=== PATIENT | male | born 1960 | race Caucasian/White ===

== ENCOUNTER → 2016-07-10 | Outpatient (CLI) | payer OTHER | LOC: MW.CHIM 08:51 | PROVIDERS: ATTEND Internal Medicine | DX: E11.65 Type 2 diabetes mellitus with hyperglycemia (principal) | CPT/HCPCS: 36415; 83036 ==

== ENCOUNTER 2018-05-03 08:27 | Emergency (ER) | payer BC ==
--- NOTE | 2018-05-03 08:56 | EDM.PDOC ---
ED HPI GENERAL MEDICAL PROBLEM - General Chief Complaint: Upper Extremity Injury/Pain Stated Complaint: INJURED RT ARM Time Seen by Provider: 05/03/18 08:52 - History of Present Illness INITIAL COMMENTS - FREE TEXT/NARRATIVE: HISTORY AND PHYSICAL: History of present illness: Patient a 57-year-old white male presents with a concern of acute right biceps injury that occurred last Thursday he's had pain swelling and limited range of motion with ecchymosis noted distal to his biceps. This was done when he was pulling on a wrench. Review of systems: As per history of present illness and below otherwise all systems reviewed and negative. Past medical history: As per history of present illness and as reviewed below otherwise noncontributory. Surgical history: As per history of present illness and as reviewed below otherwise noncontributory. Social history: No reported history of drug or alcohol abuse. Family history: As per history of present illness and as reviewed below otherwise noncontributory. Physical exam: HEENT: Atraumatic, normocephalic, pupils reactive, negative for conjunctival pallor or scleral icterus, mucous membranes moist, throat clear, neck supple, nontender, trachea midline. Lungs: Clear to auscultation, breath sounds equal bilaterally, chest nontender. Heart: S1S2, regular, negative for clicks, rubs, or JVD. Abdomen: Soft, nondistended, nontender. Negative for masses or hepatosplenomegaly. Negative for costovertebral tenderness. Pelvis: Stable nontender. Genitourinary: Deferred. Rectal: Deferred. Extremities: Patient has tenderness and what appears to be possible rupture his biceps with ecchymosis noted on the medial aspect of the proximal forearm. CMS neurovascular exam is unremarkable Neuro: Awake, alert, oriented. Cranial nerves II through XII unremarkable. Cerebellum unremarkable. Motor and sensory unremarkable throughout. Exam nonfocal. Diagnostics: None Therapeutics: Sling Impression: #1 biceps injury Definitive disposition and diagnosis as appropriate pending reevaluation and review of above. right arm Pain Score (Numeric/FACES): 7 - Related Data Allergies Allergy/AdvReac Type Severity Reaction Status Date / Time No Known Allergies Allergy Verified 05/03/18 08:34 Home Meds: Home Meds metFORMIN HCl [Metformin HCl] 1 tab PO DAILY 05/03/18 [History] Past Medical History - Past Health History Medical/Surgical History: Denies Medical/Surgical History Endocrine/Metabolic History: Reports: Diabetes, Type II - Infectious Disease History Infectious Disease History: Reports: Chicken Pox, Measles Social & Family History - Family History Family Medical History: Noncontributory - Tobacco Use Smoking Status *Q: Never Smoker - Recreational Drug Use Recreational Drug Use: No Review of Systems - Review of Systems Review Of Systems: ROS reveals no pertinent complaints other than HPI. ED EXAM, GENERAL - Physical Exam Exam: See Below (See dictation) Course - Vital Signs Last Recorded V/S: Last Vital Signs Temp 35.3 C 05/03/18 08:35 Pulse 75 05/03/18 08:35 Resp 18 05/03/18 08:35 BP 180/100 H 05/03/18 08:35 Pulse Ox 95 05/03/18 08:35 Departure - Departure Time of Disposition: 08:54 Disposition: Home, Self-Care 01 Condition: Good Clinical Impression: Upper extremity injury - Discharge Information Referrals: Ramos Beckford MD [Primary Care Provider] - Forms: ED Department Discharge Additional Instructions: The following information is given to patients seen in the emergency department who are being discharged to home. This information is to outline your options for follow-up care. We provide all patients seen in our emergency department with a follow-up referral. The need for follow-up, as well as the timing and circumstances, are variable depending upon the specifics of your emergency department visit. If you don't have a primary care physician on staff, we will provide you with a referral. We always advise you to contact your personal physician following an emergency department visit to inform them of the circumstance of the visit and for follow-up with them and/or the need for any referrals to a consulting specialist. The emergency department will also refer you to a specialist when appropriate. This referral assures that you have the opportunity for followup care with a specialist. All of these measure are taken in an effort to provide you with optimal care, which includes your followup. Under all circumstances we always encourage you to contact your private physician who remains a resource for coordinating your care. When calling for followup care, please make the office aware that this follow-up is from your recent emergency room visit. If for any reason you are refused follow-up, please contact the [facility] emergency department at and asked to speak to the emergency department charge nurse. [facility] Professional Building [address] [place] [address], [address] [place] [address] Sling as directed follow-up orthopedic surgery above Tylenol as directed return as needed as discussed off work until released by orthopedic surgery
== END 2018-05-03 09:50 | disposition home or self-care (01) ==
LOC: MW.ED 08:27
DX: S49.91XA Unspecified injury of right shoulder and upper arm, initial encounter (principal); X50.9XXA Other and unspecified overexertion or strenuous movements or postures, initial encounter
CPT/HCPCS: 99283

== ENCOUNTER 2018-05-05 06:22 | Day surgery (SDC) | payer BC ==
[2018-05-05] MEDS ORDERED: fentaNYL 250 MCG/5 ML SDV ONE (07:04)
[2018-05-05] MEDS ORDERED: Midazolam 1 MG/ML 2 ML SDV ONE (07:04)
[2018-05-05] MEDS ORDERED: Ondansetron 4 MG/2 ML SDV ONE (07:05)
[2018-05-05] MEDS ORDERED: Propofol 200 MG/20 ML SDV ONE ×2 (07:05→07:07)
--- NOTE | 2018-05-05 07:12 | PCM.PREANE ---
Preanesthetic Assessment - Anesthesia/Transfusion/Family Hx Anesthesia History: Prior Anesthesia Without Reaction Family History of Anesthesia Reaction: No Transfusion History: No Prior Transfusion(s) Intubation History: Unknown - Review of Systems General: No Symptoms Pulmonary: No Symptoms Cardiovascular: No Symptoms Gastrointestinal: No Symptoms Neurological: No Symptoms Other: Reports: None - Physical Assessment O2 Sat by Pulse Oximetry: 92 Respiratory Rate: 16 Vital Signs: Last Vital Signs Temp 36.4 C 05/05/18 07:02 Pulse 73 05/05/18 07:02 Resp 16 05/05/18 07:02 BP 175/95 H 05/05/18 07:02 Pulse Ox 92 L 05/05/18 07:02 Height: 1.83 m Weight: 136.078 kg ASA Class: 3 Mental Status: Alert & Oriented x3 Airway Class: Mallampati = 3 Dentition: Reports: Dentures (upper), Missing Tooth/Teeth (few at the bottom) Thyro-Mental Finger Breadths: 3 Mouth Opening Finger Breadths: 2 (very small mouth) ROM/Head Extension: Full Lungs: Clear to Auscultation, Normal Respiratory Effort Cardiovascular: Regular Rate, Regular Rhythm - Allergies Allergies/Adverse Reactions: Allergies Allergy/AdvReac Type Severity Reaction Status Date / Time No Known Allergies Allergy Verified 05/04/18 12:13 - Blood Blood Available: No - Anesthesia Plan Pre-Op Medication Ordered: None - Acknowledgements Anesthesia Type Planned: General Anesthesia Pt an Appropriate Candidate for the Planned Anesthesia: Yes Alternatives and Risks of Anesthesia Discussed w Pt/Guardian: Yes Pt/Guardian Understands and Agrees with Anesthesia Plan: Yes PreAnesthesia Questionnaire - Past Health History Medical/Surgical History: Denies Medical/Surgical History HEENT History: Reports: Other (See Below) Other HEENT History: top denture Respiratory History: Reports: Other (See Below) (I suggested testing for sleep apnea) Gastrointestinal History: Reports: Hepatitis Other Gastrointestinal History: hepatitis C in the past, has been treated Endocrine/Metabolic History: Reports: Diabetes, Type II (diagnosed 4 years ago, A1C 6.1-7, average glucose level around 120 per patiant), Obesity/BMI 30+ - Infectious Disease History Infectious Disease History: Reports: Chicken Pox, Measles - Past Surgical History Head Surgeries/Procedures: Reports: None GI Surgical History: Reports: Appendectomy - SUBSTANCE USE Smoking Status *Q: Never Smoker Recreational Drug Use History: No - HOME MEDS Home Medications: Home Meds metFORMIN HCl [Metformin HCl] 1 tab PO DAILY 05/03/18 [History]
[2018-05-05] MEDS ORDERED: Succinylcholine 200 MG/10 ML MDV ONE (07:19)
[2018-05-05] MEDS ORDERED: Rocuronium 10 MG/ML 10 ML Syringe ONE (07:20)
[2018-05-05] MEDS ORDERED: ceFAZolin/Dextrose,Iso-Osmotic 2 GM/50 ML Duplex Bag IV ONE (07:27)
[2018-05-05] MEDS ORDERED: ceFAZolin 2 GM in Premix Bag 1 BAG IV SCH (07:30)
[2018-05-05] MEDS ORDERED: Lidocaine 1% 20 ML MDV ONE (07:35)
[2018-05-05] MEDS ORDERED: Dexamethasone 4 MG/ML 5 ML MDV ONE (08:17)
[2018-05-05] MEDS ORDERED: Neostigmine Methylsulfate 1 MG/ML 5 ML Syringe ONE (08:50)
[2018-05-05] MEDS ORDERED: Glycopyrrolate 0.2 MG/ML SDV ONE ×2 (08:50→08:51)
[2018-05-05] MEDS ORDERED: Meperidine PF 25 MG/ML Syringe IVPUSH PRN (08:55)
[2018-05-05] MEDS ORDERED: Ondansetron 4 MG/2 ML SDV IVPUSH PRN (08:57)
--- NOTE | 2018-05-05 09:01 | PCM.OPNOTE ---
- General Post-Op/Procedure Note Date of Surgery/Procedure: 05/05/18 Operative Procedure(s): right distal biceps repair Pre Op Diagnosis: right distal biceps rupture Post-Op Diagnosis: same Primary Surgeon: Murphy Max Mai Dermatology Nurse Practitioner: Holly Padron Pathology: none EBL in mLs: 1 Complications: none Condition: Good
[2018-05-05] MEDS: fentaNYL 100 MCG/2 ML SDV IVPUSH PRN ×2 (09:38→09:49)
[2018-05-05] MEDS ORDERED: Acetaminophen 1,000 MG in Premix Bag 1 BAG IV ONE (09:55)
[2018-05-05] MEDS ORDERED: Ketorolac 30 MG/ML SDV IVPUSH ONE (09:56)
[2018-05-05] MEDS ORDERED: Ketorolac 30 MG/ML SDV ONE (09:59)
--- NOTE | 2018-05-05 10:54 | PCM.POSTAN ---
POST ANESTHESIA ASSESSMENT - MENTAL STATUS Mental Status: Alert, Oriented - RESPIRATORY Respiratory Status: Respiratory Rate WNL, Airway Patent, O2 Saturation Stable - CARDIOVASCULAR CV Status: Pulse Rate WNL, Blood Pressure Stable - GASTROINTESTINAL GI Status: No Symptoms - POST OP HYDRATION Hydration Status: Adequate & Stable - OBSERVATIONS Free Text/Narrative:: still sore 08/18, will give iv acetamenophin and iv toradol
--- NOTE | 2018-05-05 10:54 | PCM48HPAN ---
Post Anesthesia Note - EVALUATION WITHIN 48HRS OF ANESTHETIC Vital Signs in Normal Range: Yes Patient Participated in Evaluation: Yes Respiratory Function Stable: Yes Airway Patent: Yes Cardiovascular Function Stable: Yes Hydration Status Stable: Yes Pain Control Satisfactory: Yes Nausea and Vomiting Control Satisfactory: Yes Mental Status Recovered: Yes Resp Rate: 16
--- NOTE | 2018-05-05 16:20 | OR ---
SURGEON: Murphy Booth MD DATE OF PROCEDURE: 05/05/2018 EMPLOYEE COUNSELOR: Holly Padron PA-C. PREOPERATIVE DIAGNOSIS: Right distal biceps rupture. POSTOPERATIVE DIAGNOSIS: Right distal biceps rupture. OPERATION PERFORMED: Right distal biceps repair. ANESTHESIA: General. COMPLICATIONS: None. ESTIMATED BLOOD LOSS: Minimal. SPECIMENS: None. IMPLANTS: [employer] 2.9 JuggerLoc distal biceps fixation device. INDICATIONS: The patient is a 57-year-old male who recently tore his biceps due to pain in the dominant arm and he wished to have repair. He understands risks, benefits, complications including but not limited to, infection, neurovascular injury, continued pain, re-rupture from lateral antebrachial cutaneous nerve dysesthesia, posterior interosseous nerve dysfunction, need for postoperative protocol and wished to proceed. DESCRIPTION OF PROCEDURE: The patient was seen in the preoperative area. Operative extremity was marked with the patient. He was transferred to the operating room, and placed supine on the operating room table. General anesthesia was induced. Endotracheal tube was placed. He received preop antibiotics with Ancef. The right arm was prepped and draped in usual sterile fashion using alcohol followed by ChloraPrep. It was placed in a well-padded upper arm tourniquet. Tourniquet time during the case was 34 minutes. A 3 to 4 cm longitudinal incision starting about 1 cm and elbow flexion crease was made. Dissection was carried out through the subcutaneous tissues. Hemostasis was obtained. Careful dissection was performed. Lateral and antebrachial cutaneous nerve were found and pulled radially. Blunt dissection down to the radial tuberosity was performed, and it was easily found. Then with blunt dissection, was able to find the biceps tendon and milking it down, was able bring the tendon into the wound. It was then pulled out and debulked. It had a tendinosis at the end and measured approximately 6 to 7 mm, and then this was held with an Allis clamp and then careful dissection down to the radial tuberosity was performed. The bare area was noted and a guide pin was placed in this, it was over-reamed. The reamer was left in and then the 2.9 JuggerLoc Endobutton was placed across the outer aspect of the radius. This was pulled on and noted to have excellent fixation near side of the bone, and then the Krackow sutures were placed distally, passed through the blue limb on the fixation device and then back up, and then the blue sutures were also krackowed up and tied at the top of the tendon about 3 cm proximally. While flexing the arm in full supination, the tendon was pulled down into the opening in the radial tuberosity. Of note, the arm was kept in full supination during the case. This showed excellent repair of the biceps and ranged well. Tourniquet was then released. Tourniquet time was 34 minutes. There was no bleeding deep. The wound was thoroughly irrigated throughout the case, particularly after reaming. The subcutaneous tissues were closed with 2-0 Vicryl and skin with running 4-0 Monocryl with Steri-Strips. Sterile dressing was placed. Patient was extubated in operative room and transferred to recovery room in stable condition. Sponge and needle counts were correct at the end of the case. There were no complications. He will be place into a brace in his arm and a sling. SHELLIE RENEE /[id number]
== END 2018-05-05 11:09 | disposition home or self-care (01) ==
LOC: MW.SDS 06:22
PROVIDERS: ATTEND Orthopaedic Surgery
DX: S46.211A Strain of muscle, fascia and tendon of other parts of biceps, right arm, initial encounter (principal); E11.9 Type 2 diabetes mellitus without complications; E66.9 Obesity, unspecified; Z68.41 Body mass index [BMI] 40.0-44.9, adult; M19.021 Primary osteoarthritis, right elbow; Z79.84 Long term (current) use of oral hypoglycemic drugs; X58.XXXA Exposure to other specified factors, initial encounter
CPT/HCPCS: 24341; C1776; J0131; J0330; J0690; J1100; J1885; J2250; J2405; J2704; J3010; J3490

== ENCOUNTER 2018-10-04 09:13 | Day surgery (SDC) | payer BC ==
[~2018-10-04 09:13] MED LIST: Lactated Ringers 1,000 ML IV SCH
--- NOTE | 2018-10-04 10:02 | PCM.PREANE ---
Preanesthetic Assessment - Anesthesia/Transfusion/Family Hx Anesthesia History: Prior Anesthesia Without Reaction Family History of Anesthesia Reaction: No Transfusion History: No Prior Transfusion(s) Intubation History: Unknown - Review of Systems General: No Symptoms Pulmonary: No Symptoms Cardiovascular: No Symptoms Neurological: No Symptoms Other: Reports: None - Physical Assessment NPO Status Date: 10/03/18 Height: 6 ft Weight: 149.232 kg ASA Class: 3 Mental Status: Alert & Oriented x3 Airway Class: Mallampati = 3 Dentition: Reports: Dentures (upper) ROM/Head Extension: Full Lungs: Clear to Auscultation, Normal Respiratory Effort Cardiovascular: Regular Rate, Regular Rhythm - Allergies Allergies/Adverse Reactions: Allergies Allergy/AdvReac Type Severity Reaction Status Date / Time No Known Allergies Allergy Verified 09/29/18 09:45 - Blood Blood Available: No - Anesthesia Plan Pre-Op Medication Ordered: Other (insulin 10 units) - Acknowledgements Anesthesia Type Planned: General Anesthesia Pt an Appropriate Candidate for the Planned Anesthesia: Yes Alternatives and Risks of Anesthesia Discussed w Pt/Guardian: Yes Pt/Guardian Understands and Agrees with Anesthesia Plan: Yes Additional Comments: anes prob list: DM2, (stopped metformin today and used prep with gatoraid-with sugar), s/p treatment for Hep C PLAN: SQ insulin for glucose of 340, then TIVA PreAnesthesia Questionnaire - Past Health History Medical/Surgical History: Denies Medical/Surgical History HEENT History: Reports: Hard of Hearing Other HEENT History: has bilateral hearing aides but doesn't wear them all the time, uses reading glasses Respiratory History: Reports: Other (See Below) (I suggested testing for sleep apnea) Gastrointestinal History: Reports: Chronic Diarrhea, GERD, Hepatitis Other Gastrointestinal History: hx of Hepatitis C- had taken medication and is cleared Musculoskeletal History: Reports: Fracture Other Musculoskeletal History: hx of fx wrist Endocrine/Metabolic History: Reports: Diabetes, Type II, Obesity/BMI 30+ - Infectious Disease History Infectious Disease History: Reports: Chicken Pox, Measles - Past Surgical History GI Surgical History: Reports: Appendectomy Musculoskeletal Surgical History: Reports: Other (See Below) Other Musculoskeletal Surgeries/Procedures:: Right Biceps Tendon Repair - SUBSTANCE USE Smoking Status *Q: Never Smoker Recreational Drug Use History: No - HOME MEDS Home Medications: Home Meds metFORMIN HCl [Metformin HCl] 1,000 mg PO BID 05/03/18 [History] - CURRENT (IN HOUSE) MEDS Current Meds: Current Medications Lactated Ringer's (Ringers, Lactated) 1,000 mls @ 125 mls/hr IV ASDIRECTED [facility] Insulin Aspart (Novolog) 10 unit SUBCUT ACBED [facility]
[2018-10-04] MEDS ORDERED: Lidocaine 2% 5 ML SDV ONE (11:27)
[2018-10-04] MEDS ORDERED: Propofol 200 MG/20 ML SDV ONE ×3 (11:28→12:00)
[2018-10-04] MEDS ORDERED: Insulin Aspart 100 Units/ML 3 ML Pen SUBCUT SCH (11:30)
[2018-10-04] MEDS ORDERED: Midazolam 1 MG/ML 2 ML SDV ONE (11:33)
[2018-10-04] MEDS ORDERED: fentaNYL 100 MCG/2 ML SDV ONE (11:33)
--- NOTE | 2018-10-04 12:22 | PCM.OPNOTE ---
- General Post-Op/Procedure Note Date of Surgery/Procedure: 10/04/18 Operative Procedure(s): Esophagogastroduodenoscopy with gastric and esophageal biopsies. Colonoscopy. Pre Op Diagnosis: Persistent and progressive heartburn. Change in bowel habits. Rectal bleeding. Post-Op Diagnosis: Chronic gastritis. Hiatal hernia with chronic esophagitis. No evidence of colonic neoplasia. Anesthesia Technique: MAC (ASA III) Primary Surgeon: Brenton Arreola Condition: Good Free Text/Narrative:: DICTATION [id number] CPT CODE [id number]
[2018-10-04] MEDS ORDERED: Lactated Ringers 1,000 ML IV SCH (12:30)
--- NOTE | 2018-10-04 12:55 | PCM.POSTAN ---
POST ANESTHESIA ASSESSMENT - MENTAL STATUS Mental Status: Alert, Oriented - RESPIRATORY Respiratory Status: Respiratory Rate WNL, Airway Patent, O2 Saturation Stable - CARDIOVASCULAR CV Status: Pulse Rate WNL, Blood Pressure Stable - GASTROINTESTINAL GI Status: No Symptoms - POST OP HYDRATION Hydration Status: Adequate & Stable
--- NOTE | 2018-10-04 13:08 | PCM48HPAN ---
Post Anesthesia Note - EVALUATION WITHIN 48HRS OF ANESTHETIC Vital Signs in Normal Range: Yes Patient Participated in Evaluation: Yes Respiratory Function Stable: Yes Airway Patent: Yes Cardiovascular Function Stable: Yes Hydration Status Stable: Yes Pain Control Satisfactory: Yes Nausea and Vomiting Control Satisfactory: Yes Mental Status Recovered: Yes Resp Rate: 14
--- NOTE | 2018-10-04 13:49 | OR ---
SURGEON: Brenton Arreola M.D. DATE OF PROCEDURE: 10/04/2018 OPERATION PERFORMED: Colonoscopy. PRIMARY SURGEON: Brenton Arreola MD. ANESTHESIA: MAC. ASA CLASSIFICATION: III. PREOPERATIVE DIAGNOSES: 1. Change in bowel habits. 2. Rectal bleeding. POSTOPERATIVE DIAGNOSIS: No evidence of neoplasia. DESCRIPTION OF PROCEDURE: With the patient having completed esophagogastroduodenoscopy, he was maintained in the left lateral decubitus position. The colonoscope was inserted into the rectum and advanced without difficulty to the cecum. The cecum was identified by internal landmarks and external pressure. The ileocecal valve was visualized, but not cannulated. The scope was retroflexed to visualize the ascending colon from below, then straightened and slowly withdrawn. The prep was excellent. The cecum, ascending colon, hepatic flexure, transverse colon, splenic flexure, descending colon, sigmoid colon, and rectum were very well visualized. No tumors, polyps, diverticula, or angiodysplastic changes were noted anywhere in the lower gastrointestinal tract. Once the colonoscope was withdrawn to the rectum, it was retroflexed to visualize the anal orifice from above. Again, no tumors or polyps were seen and there were no acute hemorrhoidal changes. The colonoscope was then straightened, the rectum aspirated, and the colonoscope removed. The patient tolerated the procedure well and was taken to recovery room in stable condition. JOSÉ RENEE /[id number]
--- NOTE | 2018-10-04 16:40 | OR ---
SURGEON: Brenton Arreola M.D. DATE OF PROCEDURE: 10/04/2018 OPERATION PERFORMED: Esophagogastroduodenoscopy with biopsy. PRIMARY SURGEON: Brenton Arreola MD. ANESTHESIA: MAC. ASA CLASSIFICATION: III. PREOPERATIVE DIAGNOSIS: Persistent and progressive heartburn. POSTOPERATIVE DIAGNOSES: 1. Mild to moderate chronic gastritis. 2. Hiatal hernia with esophagitis. DESCRIPTION OF PROCEDURE: The patient was taken to the endoscopy room, positioned on the endoscopy table in the left lateral decubitus position. Time-out was called for appropriate identification of the patient and procedure. Monitored anesthesia care was provided. The bite block was placed between the patient's teeth. The gastroscope was inserted through the bite block into the oropharynx and advanced without difficulty through the esophagus and stomach into the duodenum where examination was now carried out in a retrograde fashion. The duodenum shows no acute inflammatory changes or ulcerations. The scope was withdrawn into the stomach that does show mild to moderate gastritis. Antral biopsies were obtained to look for the presence of Helicobacter pylori. The gastroscope was retroflexed to visualize the proximal stomach. The patient does have a hiatal hernia. The scope was then straightened and slowly withdrawn, carefully visualizing both the greater and lesser curvatures. No acute lesions are noted. The patient does have a hiatal hernia that was best viewed in a forward fashion. Biopsies of the distal esophagus were obtained as there does appear to be some inflammatory changes. The esophagus itself demonstrates good contractility. No mid or proximal lesions were identified. The vocal cords were briefly visualized as the scope was withdrawn and noted to move symmetrically. The gastroscope was then removed with the patient having tolerated the procedure well. Following colonoscopy, he was taken to recovery room in stable condition. JOSÉ / VÍCTOR /[id number]
== END 2018-10-04 13:17 | disposition home or self-care (01) ==
LOC: MW.SDS 09:13
PROVIDERS: ATTEND Surgery
DX: K21.0 Gastro-esophageal reflux disease with esophagitis (principal); K29.50 Unspecified chronic gastritis without bleeding; K44.9 Diaphragmatic hernia without obstruction or gangrene; R19.4 Change in bowel habit; K62.5 Hemorrhage of anus and rectum; E11.9 Type 2 diabetes mellitus without complications; B19.20 Unspecified viral hepatitis C without hepatic coma; E66.01 Morbid (severe) obesity due to excess calories; Z68.44 Body mass index [BMI] 60.0-69.9, adult; Z82.49 Family history of ischemic heart disease and other diseases of the circulatory system; Z79.84 Long term (current) use of oral hypoglycemic drugs; Z98.890 Other specified postprocedural states
CPT/HCPCS: 43239; 45378; 82962; 88305; 88312; J1815; J2001; J2250; J2704; J3010; J7120; 00813

== ENCOUNTER 2020-04-13 08:08 | Emergency (ER) | payer BC ==
[2020-04-13] MEDS ORDERED: Diazepam 2 MG Tab PO ONE (08:29)
[2020-04-13] MEDS ORDERED: Ketorolac 30 MG/ML SDV IM ONE (08:30)
--- NOTE | 2020-04-13 08:35 | EDM.PDOC ---
ED HPI GENERAL MEDICAL PROBLEM - General Chief Complaint: Back Pain or Injury Stated Complaint: lower back pain Time Seen by Provider: 04/13/20 08:11 - History of Present Illness INITIAL COMMENTS - FREE TEXT/NARRATIVE: Patient is a 59-year-old male with history of diabetes and hyperlipidemia who is presenting with right lower back pain with some radiation to the right anterior thigh. 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 He does use his back quite heavily at work he has had some intermittent aches and pains but has no serious back history that he reports. He reports that the last 2 or 3 days he has had an ache in the right lower back with some radiation into the right thigh that worsens with bending and worsens with sitting. He woke up this morning in severe pain was unable to ambulate due to the pain. However he was able to ambulate to his car seat in his car his drove him here and was able to walk into the exam room but he reports severe pain now with walking. He denies lower extremity weakness he denies numbness beyond the right anterior thigh he denies any urinary or bowel incontinence he denies any direct trauma to the back of the hip or leg. Back/Right Hip Pain Score (Numeric/FACES): 8 - Related Data Allergies Allergy/AdvReac Type Severity Reaction Status Date / Time No Known Allergies Allergy Verified 04/13/20 08:18 Home Meds: Home Meds metFORMIN HCl [Metformin HCl] 1,000 mg PO BID 05/03/18 [History] Dulaglutide [Trulicity] 1 injection SQ WEEKLY 04/13/20 [History] Empagliflozin [Jardiance] 1 tab PO DAILY 04/13/20 [History] diazePAM [Valium] 4 mg PO TID PRN 3 Days #12 tab 04/13/20 [Rx] Past Medical History - Past Health History Medical/Surgical History: Denies Medical/Surgical History HEENT History: Reports: Hard of Hearing Other HEENT History: has bilateral hearing aides but doesn't wear them all the time, uses reading glasses Respiratory History: Reports: Other (See Below) Gastrointestinal History: Reports: Chronic Diarrhea, GERD, Hepatitis Other Gastrointestinal History: hx of Hepatitis C- had taken medication and is cleared Musculoskeletal History: Reports: Fracture Other Musculoskeletal History: hx of fx wrist Endocrine/Metabolic History: Reports: Diabetes, Type II, Obesity/BMI 30+ - Infectious Disease History Infectious Disease History: Reports: Chicken Pox, Hepatitis C, Measles - Past Surgical History Head Surgeries/Procedures: Reports: None GI Surgical History: Reports: Appendectomy Musculoskeletal Surgical History: Reports: Other (See Below) Other Musculoskeletal Surgeries/Procedures:: Right Biceps Tendon Repair Social & Family History - Family History Family Medical History: No Pertinent Family History - Tobacco Use Tobacco Use Status *Q: Never Tobacco User - Recreational Drug Use Recreational Drug Use: No ED ROS GENERAL - Review of Systems Review Of Systems: See Below Free Text/Narrative/Comment: General: No fever. Neck: No neck stiffness. Respiratory: No shortness of breath. Cardiac: No chest pain. Gastrointestinal: No nausea, vomiting or abdominal pain. Urinary: No dysuria. Musculoskeletal: Per HPI Neurologic: No headache. ED EXAM, GENERAL - Physical Exam Exam: See Below Free Text/Narrative:: General Appearance: No acute distress, appears comfortable Skin: No rash HEENT: Normocephalic/atraumatic, sclera anicteric, mucous membranes moist Neck: Normal range of motion Chest and Lungs: Bilateral breath sounds, clear to auscultation Cardiovascular: Regular rate and rhythm, no murmur Abdomen: Soft, non-tender Back: No midline tenderness there is some tenderness in the right paravertebral musculature L3-L4-L5, strength is intact in the bilateral hips in abduction abduction flexion and extension likewise strength intact in bilateral knees in flexion and extension as well as in bilateral ankles and plantar flexion and dorsiflexion. There is no midline tenderness or step-off in his back Musculoskeletal: No edema or tenderness Neurologic: Awake, alert, no obvious deficits, moving all extremities Psychiatric: Appropriate, cooperative Course - Vital Signs Last Recorded V/S: Last Vital Signs Temp 96.4 F L 04/13/20 08:50 Pulse 70 04/13/20 08:50 Resp 17 04/13/20 08:50 BP 150/99 H 04/13/20 08:50 Pulse Ox 95 04/13/20 08:50 - Orders/Labs/Meds Meds: Medications Discontinued Medications Generic Name Dose Route Start Last Admin Trade Name Freq PRN Reason Stop Dose Admin Diazepam 5 mg 04/13/20 08:29 04/13/20 08:39 Valium PO 04/13/20 08:30 5 mg ONETIME ONE Administration Ketorolac Tromethamine 30 mg 04/13/20 08:30 04/13/20 08:39 Toradol IM 04/13/20 08:31 30 mg ONETIME ONE Administration Departure - Departure Time of Disposition: 08:30 Disposition: Home, Self-Care 01 Condition: Good Clinical Impression: Lumbar strain - Discharge Information *PRESCRIPTION DRUG MONITORING PROGRAM REVIEWED*: Not Applicable *COPY OF PRESCRIPTION DRUG MONITORING REPORT IN PATIENT MITA: Not Applicable Prescriptions: diazePAM [Valium] 4 mg PO TID PRN 3 Days #12 tab PRN Reason: Muscle Spasm Instructions: Lumbar Sprain Referrals: Ramos Beckford MD [Primary Care Provider] - Forms: ED Department Discharge Additional Instructions: Today you had been given an injection of an anti-inflammatory called Toradol which is similar to ibuprofen as well as a dose of muscle relaxant called Valium. I encourage you to go home and take it easy for a few hours the Valium may make you little sleepy. However important that later on during the day today you get up and move around but do not overexert yourself. Starting this evening and around 5 PM I recommend that you take 3 [id number] Advil tablets which is 600 mg of ibuprofen with food. I recommend that you do this tomorrow morning with breakfast as well and continue this every 8 hours for the next 5 days being sure to always take the medication with food. I have sent a prescription for Valium to the pharmacy which you can citrus picker tomorrow. Important you do not drive operate machinery or drink any alcohol if you take t he Valium it is best taken at night when you go to bed to help with morning spasm. Your symptoms should calm down and improve over the next several days if you are not feeling her normal self by mid next week I encourage you to follow- up with your primary care doctor. If you worsen or have any other new symptoms that concern you I encourage you to call your doctor or return to the ER. The following information is given to patients seen in the emergency department who are being discharged to home. This information is to outline your options for follow-up care. We provide all patients seen in our emergency department with a follow-up referral. The need for follow-up, as well as the timing and circumstances, are variable depending upon the specifics of your emergency department visit. If you don't have a primary care physician on staff, we will provide you with a referral. We always advise you to contact your personal physician following an emergency department visit to inform them of the circumstance of the visit and for follow-up with them and/or the need for any referrals to a consulting specialist. The emergency department will also refer you to a specialist when appropriate. This referral assures that you have the opportunity for follow-up care with a specialist. All of these measure are taken in an effort to provide you with optimal care, which includes your follow-up. Under all circumstances we always encourage you to contact your private physician who remains a resource for coordinating your care. When calling for follow-up care, please make the office aware that this follow-up is from your recent emergency room visit. If for any reason you are refused follow-up, please contact the [facility] Emergency Department at and asked to speak to the emergency department charge nurse. Sepsis Event Note (ED) - Evaluation Sepsis Screening Result: No Definite Risk - Focused Exam Vital Signs: Vital Signs Temp Pulse Resp BP Pulse Ox 04/13/20 08:50 96.4 F L 70 17 150/99 H 95 04/13/20 08:19 98.3 F 75 16 148/95 H 98 - Assessment/Plan Assessment:: 59-year-old male presenting with signs symptoms most consistent with lumbar back strain with some mild radiculopathy there is no strength deficit there are no findings of cord compression or cauda equina there is no fever no findings that would suggest osteomyelitis risk factors for epidural abscess. Patient ambulates well at this time. Patient was provided with a dose of Toradol and Valium here he was instructed on [id number] ibuprofen use and a prescription for Valium was sent to the pharmacy which he can citrus picker tomorrow when they open. Strict return precautions and follow-up discussed and understood. Patient comfortable with discharge.
== END 2020-04-13 08:52 | disposition home or self-care (01) ==
LOC: MW.ED 08:08
DX: S39.012A Strain of muscle, fascia and tendon of lower back, initial encounter (principal); E11.9 Type 2 diabetes mellitus without complications; E66.9 Obesity, unspecified; Z68.39 Body mass index [BMI] 39.0-39.9, adult; Z79.84 Long term (current) use of oral hypoglycemic drugs; X50.9XXA Other and unspecified overexertion or strenuous movements or postures, initial encounter; Y99.0 Civilian activity done for income or pay
CPT/HCPCS: 96372; 99283; A9270; J1885

== ENCOUNTER 2020-04-17 11:00 | Emergency (ER) | payer BC ==
[2020-04-17] MEDS ORDERED: Acetaminophen/oxyCODONE 325-5 MG Tab PO ONE (11:53)
--- NOTE | 2020-04-17 11:59 | EDM.PDOC ---
ED HPI GENERAL MEDICAL PROBLEM - General Chief Complaint: Back Pain or Injury Stated Complaint: FROM CLINIC Time Seen by Provider: 04/17/20 11:06 Source of Information: Reports: Patient History Limitations: Reports: No Limitations - History of Present Illness INITIAL COMMENTS - FREE TEXT/NARRATIVE: Patient is a 59-year-old male who was sent over from clinic back pain. Patient was seen here in the ER few days ago for back pain was given muscle relaxers that did not resolve pain. Pain states the pain has been getting worse and now has numbness to the saddle area and also feels like she does not know when he is to urinate. Patient denies any direct injuries to the back. Patient also reports some leg weakness as well. Patient denies any nausea vomiting fever chills or other complaints. back Pain Score (Numeric/FACES): 11 - Related Data Allergies Allergy/AdvReac Type Severity Reaction Status Date / Time No Known Allergies Allergy Verified 04/17/20 11:28 Home Meds: Home Meds metFORMIN HCl [Metformin HCl] 1,000 mg PO BID 05/03/18 [History] Dulaglutide [Trulicity] 1 injection SQ WEEKLY 04/13/20 [History] Empagliflozin [Jardiance] 1 tab PO DAILY 04/13/20 [History] diazePAM [Valium] 4 mg PO TID PRN 3 Days #12 tab 04/13/20 [Rx] Acetaminophen/oxyCODONE [Percocet 325-5 MG] 1 each PO Q6HR PRN 5 Days #20 tab 04/17/20 [Rx] Metaxalone 800 mg PO TID 04/17/20 [History] predniSONE [Prednisone] 10 mg PO DAILY 04/17/20 [History] Past Medical History - Past Health History Medical/Surgical History: Denies Medical/Surgical History HEENT History: Reports: Hard of Hearing Other HEENT History: has bilateral hearing aides but doesn't wear them all the time, uses reading glasses Respiratory History: Reports: Other (See Below) Gastrointestinal History: Reports: Chronic Diarrhea, GERD, Hepatitis Other Gastrointestinal History: hx of Hepatitis C- had taken medication and is cleared Musculoskeletal History: Reports: Fracture Other Musculoskeletal History: hx of fx wrist Endocrine/Metabolic History: Reports: Diabetes, Type II, Obesity/BMI 30+ - Infectious Disease History Infectious Disease History: Reports: Chicken Pox, Hepatitis C, Measles - Past Surgical History Head Surgeries/Procedures: Reports: None GI Surgical History: Reports: Appendectomy Musculoskeletal Surgical History: Reports: Other (See Below) Other Musculoskeletal Surgeries/Procedures:: Right Biceps Tendon Repair Social & Family History - Family History Family Medical History: No Pertinent Family History - Tobacco Use Tobacco Use Status *Q: Never Tobacco User - Recreational Drug Use Recreational Drug Use: No ED ROS GENERAL - Review of Systems Review Of Systems: See Below Constitutional: Reports: No Symptoms HEENT: Reports: No Symptoms Respiratory: Reports: No Symptoms Cardiovascular: Reports: No Symptoms Endocrine: Reports: No Symptoms GI/Abdominal: Reports: No Symptoms : Reports: No Symptoms Musculoskeletal: Reports: Back Pain Skin: Reports: No Symptoms Neurological: Reports: No Symptoms Psychiatric: Reports: No Symptoms Hematologic/Lymphatic: Reports: No Symptoms Immunologic: Reports: No Symptoms ED EXAM, GENERAL - Physical Exam Exam: See Below Exam Limited By: No Limitations General Appearance: Alert, WD/WN Respiratory/Chest: No Respiratory Distress, Lungs Clear Cardiovascular: Normal Peripheral Pulses, Regular Rate, Rhythm Back Exam: Vertebral Tenderness. No: Paraspinal Tenderness Extremities: Normal Range of Motion Neurological: Alert, Oriented, CN II-XII Intact, Normal Cognition Course - Vital Signs Last Recorded V/S: Last Vital Signs Temp 96.9 F 04/17/20 11:26 Pulse 93 04/17/20 11:26 Resp 17 04/17/20 11:26 BP 135/90 04/17/20 11:26 Pulse Ox 93 L 04/17/20 11:26 - Orders/Labs/Meds Orders: Active Orders 24 hr Category Date Time Status Bladder Scan [RC] ASDIRECTED Care 04/17/20 13:58 Active Labs: Laboratory Tests 04/17/20 04/17/20 Range/Units 12:09 12:09 WBC 10.02 (4.0-11.0) K/uL RBC 5.61 (4.50-5.90) M/uL Hgb 17.2 H (13.0-17.0) g/dL Hct 50.4 H (38.0-50.0) % MCV 89.8 (80.0-98.0) fL MCH 30.7 (27.0-32.0) pg MCHC 34.1 (31.0-37.0) g/dL RDW Std Deviation 41.8 (28.0-62.0) fl RDW Coeff of Jimmy 13 (11.0-15.0) % Plt Count 317 (150-400) K/uL MPV 9.70 (7.40-12.00) fL Neut % (Auto) 75.0 (48.0-80.0) % Lymph % (Auto) 16.6 (16.0-40.0) % Amite % (Auto) 8.0 (0.0-15.0) % Eos % (Auto) 0.2 (0.0-7.0) % Baso % (Auto) 0.2 (0.0-1.5) % Neut # (Auto) 7.5 H (1.4-5.7) K/uL Lymph # (Auto) 1.7 (0.6-2.4) K/uL [place] # (Auto) 0.8 (0.0-0.8) K/uL Eos # (Auto) 0.0 (0.0-0.7) K/uL Baso # (Auto) 0.0 (0.0-0.1) K/uL Nucleated RBC % 0.0 /100WBC Nucleated RBCs # 0 K/uL Sodium 140 (136-148) mmol/L Potassium 3.9 (3.5-5.1) mmol/L Chloride 103 (98-107) mmol/L Carbon Dioxide 23.6 (21.0-32.0) mmol/L BUN 26 H (7.0-18.0) mg/dL Creatinine 1.1 (0.8-1.3) mg/dL Est Cr Clr Drug Dosing 81.32 mL/min Estimated GFR (MDRD) > 60.0 ml/min Glucose 135 H (74-106) mg/dL Calcium 9.6 (8.5-10.1) mg/dL Total Bilirubin 0.7 (0.2-1.0) mg/dL AST 19 (15-37) IU/L ALT 34 (14-63) IU/L Alkaline Phosphatase 58 (46-116) U/L Creatine Kinase 227 (26-308) U/L C-Reactive Protein <0.20 (0.00-0.90) mg/dL Total Protein 8.1 (6.4-8.2) g/dL Albumin 4.1 (3.4-5.0) g/dL Globulin 4.0 (2.6-4.0) g/dL Albumin/Globulin Ratio 1.0 (0.9-1.6) Meds: Medications Discontinued Medications Generic Name Dose Route Start Last Admin Trade Name Anabel PRN Reason Stop Dose Admin Oxycodone/Acetaminophen 1 tab 04/17/20 11:53 04/17/20 11:59 Percocet 325-5 Mg PO 04/17/20 11:54 1 tab ONETIME ONE Administration - Re-Assessments/Exams Free Text/Narrative Re-Assessment/Exam: 04/17/20 14:32 Patient results for MRI which showed patient does show spinal stenosis. Patient for residual are less than 90 and the post void was taken little bit more than 45 minutes after urinating. Patient also has good rectal tone. We spoke to neurosurgery who can see and evaluate patient in clinic tomorrow morning. Patient will be discharged with additional pain meds. Departure - Departure Time of Disposition: 15:06 Disposition: Home, Self-Care 01 Condition: Good Clinical Impression: Spinal stenosis at L4-L5 level - Discharge Information *PRESCRIPTION DRUG MONITORING PROGRAM REVIEWED*: Not Applicable *COPY OF PRESCRIPTION DRUG MONITORING REPORT IN PATIENT MITA: Not Applicable Referrals: Andre Huerta MD [Primary Care Provider] - Forms: ED Department Discharge Additional Instructions: The following information is given to patients seen in the emergency department who are being discharged to home. This information is to outline your options for follow-up care. We provide all patients seen in our emergency department with a follow-up referral. The need for follow-up, as well as the timing and circumstances, are variable depending upon the specifics of your emergency department visit. If you don't have a primary care physician on staff, we will provide you with a referral. We always advise you to contact your personal physician following an emergency department visit to inform them of the circumstance of the visit and for follow-up with them and/or the need for any referrals to a consulting specialist. The emergency department will also refer you to a specialist when appropriate. This referral assures that you have the opportunity for follow-up care with a specialist. All of these measure are taken in an effort to provide you with optimal care, which includes your follow-up. Under all circumstances we always encourage you to contact your private physician who remains a resource for coordinating your care. When calling for follow-up care, please make the office aware that this follow-up is from your recent emergency room visit. If for any reason you are refused follow-up, please contact the [facility] Emergency Department at and asked to speak to the emergency department charge nurse. Please follow up with your primary care physician. If you do not have a primary care physician, see below: Dr. [facility]mill[facility] [address], [place], [place] [address] Follow-up with neurosurgery clear if you have any increase pain difficulty walking or difficulty urinating please return to the emergency department. Sepsis Event Note (ED) - Evaluation Sepsis Screening Result: No Definite Risk - Focused Exam Vital Signs: Vital Signs Temp Pulse Resp BP Pulse Ox 04/17/20 11:26 96.9 F 93 17 135/90 93 L - My Orders Last 24 Hours: My Active Orders 04/17/20 13:58 Bladder Scan [RC] ASDIRECTED - Assessment/Plan Last 24 Hours: My Active Orders 04/17/20 13:58 Bladder Scan [RC] ASDIRECTED Assessment:: Is a 59-year-old male who presents today for back pain. Patient complain about urinary symptoms and urinary incontinence. Concern for cord compression will order MRI give pain control and reassess.
[2020-04-17 12:41] LABS: BLOOD UREA NITROGEN,BUN 26 mg/dL (7.0-18.0); CARBON DIOXIDE,CO2 23.6 mmol/L (21.0-32.0); CHLORIDE,CL 103 mmol/L (98-107); GLUCOSE RANDOM 135 mg/dL (74-106); POTASSIUM,K 3.9 mmol/L (3.5-5.1); SODIUM,NA 140 mmol/L (136-148)
--- NOTE | 2020-04-17 13:29 | MR ---
Indication: Back pain. Subtle paresthesia. Urinary incontinence. Technique: Noncontrast sagittal T1, T2, STIR and axial T2 sequences are provided. Comparison: No prior studies available for comparison at this institution. Findings: Thoracic alignment is within normal limits. Minimal anterior wedging of the T8 and T9 vertebral bodies secondary to superior inferior endplate Schmorl`s nodes and possible chronic mild compression deformities. No retropulsed fragments. No evidence of acute fracture, dislocation or subluxation. No prevertebral or paraspinal soft tissue swelling. No aggressive osseous lesions. Multilevel disc and endplate degenerative changes. C7-T1: Small right central disc protrusion indents the thecal sac without spinal canal stenosis. No neural foramina narrowing. T1-2: No spinal canal stenosis or neural foramina narrowing. T2-3: No spinal canal stenosis or neural foramina narrowing. T3-4: No spinal canal stenosis or neural foramina narrowing. T4-5: Mild disc bulge. Mild spinal canal narrowing. Mild left neural foramina narrowing. T5-6: Mild disc bulge. Mild spinal canal narrowing. No neural foramina narrowing. T6-7: Diffuse disc bulge. Mild spinal canal narrowing. No neural foramina narrowing. T7-8: Left central disc protrusion contacts the ventral cord surface results in mild spinal canal narrowing. Mild to moderate right neural foramina narrowing due to facet arthrosis. T8-9: Moderate interspace narrowing. Diffuse posterior disc bulge eccentric to the right contacts the spinal cord results in moderate spinal canal narrowing the dorsal epidural fat is preserved however. No neural foramina narrowing. T9-10: There is a large left central disc protrusion and smaller right central disc protrusion that results in moderate spinal canal stenosis and contact with the ventral cord surface. The dorsal epidural fat is preserved. Mild bilateral neural foramina narrowing. T10-T11: Small central disc protrusion indents the thecal sac without significant spinal canal stenosis. No neural foramina narrowing. T11-12 and T12-L1: No spinal canal stenosis or neural foramina narrowing. The conus medullaris is normal in signal located at T12. Impression: 1. No acute osseous abnormality. Normal alignment. Schmorl`s nodes and mild anterior wedging at T8-T9 may be secondary to remote compression deformities. No retropulsed fragments. 2. Multilevel disc, endplate, and facet degeneration. At T7-8 there is a left sided disc herniation that contacts the ventral cord surface results in mild spinal canal narrowing. At T8-9 there is a disc bulge eccentric to the right contacting the ventral cord surface and resulting in moderate spinal canal stenosis. At T9-10 there is a large left central disc protrusion and small right central disc protrusion that results in moderate spinal canal stenosis and minimal flattening the left ventral cord contour.. 3. No high-grade neural foramina narrowing. 4. No abnormal intramedullary spinal cord signal. Dictated by Landen Mcallister MD @ Apr 17 2020 1:16PM Signed by Dr. Landen Mcallister @ Apr 17 2020 1:26PM
--- NOTE | 2020-04-17 13:35 | MR ---
Indication: LBP, SADDLE PARALYSIS, AND URINARY INCONTINENCE Technique: Noncontrast sagittal and axial T1, T2, and sagittal STIR sequences are provided. Comparison: No prior studies available for comparison at this institution. Findings: Examination is limited by motion artifact. Vertebral body heights are maintained. No compression fractures. No acute fracture. No prevertebral or paraspinal soft tissue swelling. Multilevel mild endplate degenerative changes. A few small benign intraosseous hemangiomas are noted. Conus medullaris is normal in signal located T12. Findings at individual levels are detailed as follows: T11-12: No spinal canal stenosis or neural foramina narrowing. T12-L1: No spinal canal stenosis or neural foramina narrowing. L1-2: There is a large central disc extrusion with 9 millimeter inferior migration that results in severe spinal canal stenosis and near complete effacement of the subarachnoid space. Dorsal epidural fat is preserved. Mild facet arthrosis. No significant neural foramina narrowing. L2-3: There is a large central disc extrusion that results in severe spinal canal stenosis and complete effacement of the CSF space. No significant neural foramina narrowing. L3-4: Diffuse disc bulge with small left subarticular disc protrusion results in mild left subarticular recess narrowing and mild spinal canal narrowing. No significant neural foramina narrowing. L4-5: There is a moderate central disc protrusion and bilateral facet arthrosis and ligamentum flavum buckling results in moderate to severe spinal canal stenosis. Mild right neural foramina narrowing. L5-S1: Small central disc protrusion indents the thecal sac without significant spinal canal stenosis. Bilateral facet arthrosis. Mild right neural foramina narrowing. Findings were discussed with Dr. Boyer at 1:34 p.m. Impression: 1. No acute osseous abnormality. Normal alignment. 2. At L1-2, there is severe spinal canal stenosis with near complete effacement of the subarachnoid space. 3. At L2-3 there is severe spinal canal stenosis with complete effacement of the subarachnoid space. 4. At L3-4 there is mild left subarticular recess and mild spinal canal narrowing. 5. At L4-5 there is moderate-severe spinal canal stenosis. Mild right neural foramina narrowing. 6. At L5-S1 there is mild right neural foramina narrowing. Dictated by Landen Mcallister MD @ Apr 17 2020 1:26PM Signed by Dr. Landen Mcallister @ Apr 17 2020 1:34PM
== END 2020-04-17 15:30 | disposition home or self-care (01) ==
LOC: MW.ED 11:00
DX: M48.061 Spinal stenosis, lumbar region without neurogenic claudication (principal); R32 Unspecified urinary incontinence; E11.9 Type 2 diabetes mellitus without complications; E66.9 Obesity, unspecified; Z79.84 Long term (current) use of oral hypoglycemic drugs; Z79.899 Other long term (current) drug therapy; Z90.49 Acquired absence of other specified parts of digestive tract
CPT/HCPCS: 36415; 51798; 72146; 72148; 80053; 82550; 85025; 86140; 99284; A9270

== ENCOUNTER 2021-01-05 19:55 | Emergency (ER) | payer BC, OTHER ==
[2021-01-05] MEDS ORDERED: Sodium Chloride 0.9% 10 ML Syringe FLUSH PRN (20:13)
[2021-01-05] MEDS ORDERED: Sodium Chloride 0.9% 2.5 ML Syringe FLUSH PRN (20:13)
[2021-01-05] MEDS ORDERED: Sodium Chloride 0.9% 1,000 ML IV ONE (20:19)
--- NOTE | 2021-01-05 20:30 | EDM.PDOC ---
ED HPI GENERAL MEDICAL PROBLEM - General Chief Complaint: Respiratory Problem Stated Complaint: UPPER RESP Time Seen by Provider: 01/05/21 20:06 - History of Present Illness INITIAL COMMENTS - FREE TEXT/NARRATIVE: HISTORY AND PHYSICAL: History of present illness: This is a 60-year-old gentleman with history significant for noncemented diabetes who presents to the ER today secondary to concerns regarding coronavirus infection. Patient has not had his coronavirus vaccination as of yet and reports that his has had coronavirus twice. 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 Patient has no known Covid exposures. Patient denies any recent fevers, shakes, chills. Patient reports that nausea with no vomiting but he has had diarrhea. Patient denies any headaches. Patient reports he has had a productive cough of white mucus over the last couple days. Patient denies any chest pain. Patient reports that he has been having increasing shortness of breath and increased fa tigue over the last several days. Patient has not had his influenza vaccine either. Patient has any dysuria, frequency, urgency. Patient has any melena or bright red blood per rectum. Patient has any pain rating down his arms or back. Patient denies any chest pain with exertion. Patient has any calf swelling or edema. Patient denies any orthopnea. Patient has no known drug allergies. Patient has any tobacco alcohol or drugs. Patient has a history significant for cauda equina syndrome that was treated with surgical repair approximately 1 year ago of unclear etiology. Review of systems: As per history of present illness and below otherwise all systems reviewed and negative. Past medical history: As per history of present illness and as reviewed below otherwise noncontributory. Surgical history: As per history of present illness and as reviewed below otherwise noncontributory. Social history: No reported history of drug abuse. Family history: As per history of present illness and as reviewed below otherwise noncontributory. Physical exam: This patient was seen and evaluated during the 2019 SARS-CoV-2 novel coronavirus pandemic period. Community viral transmission is ongoing at time of this encounter and the emergency department is operating under pandemic response procedures. Constitutional: Patient is oriented to person, place, and time. Appears well-developed and well-nourished. No distress. HEENT: Moist mucous membranes Head: Normocephalic and atraumatic Eyes: Right eye exhibits no discharge. Left eye exhibits no discharge. No scleral icterus Neck: Normal range of motion. No tracheal deviation present. Cardiovascular: Normal rate and regular rhythm. Pulmonary: Effort normal, no respiratory distress. Abdominal: No distention Musculoskeletal: Normal range of motion Neurologic: Alert and oriented to person, place and time. Skin: [place], warm and dry. Psychiatric: Normal mood and affect. Behavior is normal. Judgment and thought content normal. Nursing note and vital signs have been reviewed Diagnostics: January 05, 2021 7:59 PM: EKG: As interpreted by ER physician: Ramona: Nonspecific ST-T wave abnormalities Normal axis No evidence of ST elevation MS Normal sinus rhythm heart rate of 100 Therapeutics: [] Assessment and plan: This is a 60-year-old gentleman with history significant for diabetes who presents ER today with concerns regarding Covid infection secondary to shortness of breath, diarrhea, white productive cough, generalized fatigue and weakness over the last several days. Patient will have a Covid test performed here in the ED as well as a CBC, CMP, troponin, BNP, D-dimer to rule out heart failure, CHF, pulmonary embolism, myocardial infarction, electrolyte abnormalities, anemia. Patient's labs were reviewed. Patient's Covid test is positive. Patient's chest x-ray was unremarkable with no evidence of pneumonia. Patient pulse ox fluctuates between 91 to 94% on room air here in the ED. Patient is clinically hemodynamically stable at this time would not require inpatient therapy for coronavirus. Patient be given a dose of Decadron here in the ED and will be sent prescription for prednisone. I have discussed the risks and benefits of Regeneron and this time the patient is amenable to possibly getting it. Paperwork has been initiated so they will be called for an infusion appointment. Patient has been informed that he needs to return to the ED if he has any increase shortness of breath. Patient was informed to purchase a pulse oximeter to assist him with determining his oxygen level as to know when to return to the ED.\ \ All results have been reviewed with the patient and his and they are in agreement with the current plan of care. Reassessment at the time of disposition demonstrates that the patient is in no acute distress. The patient has remained stable throughout the entire ED visit and is without objective evidence for acute process requiring urgent int ervention or hospitalization. The patient is stable for discharge, counseling is provided as documented above, discussed symptomatic treatment and specific conditions for return. I have spoken with the patient/caregiver and discussed todays findings, in addition to providing specific details for the plan of care. Questions are answered and there is agreement with the plan. Definitive disposition and diagnosis as appropriate pending reevaluation and review of above. - Related Data Allergies Allergy/AdvReac Type Severity Reaction Status Date / Time No Known Allergies Allergy Verified 01/05/21 20:01 Home Meds: Home Meds metFORMIN HCl [Metformin HCl] 1,000 mg PO BID 05/03/18 [History] Dulaglutide [Trulicity] 1 injection SQ WEEKLY 04/13/20 [History] Empagliflozin [Jardiance] 1 tab PO DAILY 04/13/20 [History] diazePAM [Valium] 4 mg PO TID PRN 3 Days #12 tab 04/13/20 [Rx] Acetaminophen/oxyCODONE [Percocet 325-5 MG] 1 each PO Q6HR PRN 5 Days #20 tab 04/17/20 [Rx] Metaxalone 800 mg PO TID 04/17/20 [History] predniSONE [Prednisone] 10 mg PO DAILY 04/17/20 [History] predniSONE [Prednisone] 50 mg PO DAILY #5 tablet 01/05/21 [Rx] Past Medical History - Past Health History Medical/Surgical History: Denies Medical/Surgical History HEENT History: Reports: Hard of Hearing Other HEENT History: has bilateral hearing aides but doesn't wear them all the time, uses reading glasses Cardiovascular History: Reports: CAD Respiratory History: Reports: Other (See Below) Gastrointestinal History: Reports: Chronic Diarrhea, GERD, Hepatitis Other Gastrointestinal History: hx of Hepatitis C- had taken medication and is cleared Musculoskeletal History: Reports: Fracture Other Musculoskeletal History: hx of fx wrist Endocrine/Metabolic History: Reports: Diabetes, Type II, Obesity/BMI 30+ - Infectious Disease History Infectious Disease History: Reports: Chicken Pox, Hepatitis C, Measles - Past Surgical History Head Surgeries/Procedures: Reports: None GI Surgical History: Reports: Appendectomy Musculoskeletal Surgical History: Reports: Other (See Below) Other Musculoskeletal Surgeries/Procedures:: Right Biceps Tendon Repair Social & Family History - Family History Family Medical History: No Pertinent Family History - Tobacco Use Tobacco Use Status *Q: Never Tobacco User - Recreational Drug Use Recreational Drug Use: No ED ROS GENERAL - Review of Systems Review Of Systems: See Below ED EXAM, GENERAL - Physical Exam Exam: See Below Course - Vital Signs Last Recorded V/S: Last Vital Signs Temp 99.4 F 01/05/21 19:58 Pulse 101 H 01/05/21 22:15 Resp 20 01/05/21 19:58 BP 150/104 H 01/05/21 19:58 Pulse Ox 92 L 01/05/21 22:15 - Orders/Labs/Meds Orders: Active Orders 24 hr Category Date Time Status Sodium Chloride 0.9% [Saline Flush] Med 01/05/21 20:13 Active 10 ml FLUSH ASDIRECTED PRN Sodium Chloride 0.9% [Saline Flush] Med 01/05/21 20:13 Active 2.5 ml FLUSH ASDIRECTED PRN Isolation [COMM] Routine Oth 01/05/21 20:14 Active Saline Lock Insert [OM.PC] Stat Ot 01/05/21 20:13 Ordered Medication Orders Sodium Chloride (Sodium Chloride 0.9% 10 Ml Syringe) 10 ml FLUSH ASDIRECTED PRN PRN Reason: Keep Vein Open Sodium Chloride (Sodium Chloride 0.9% 2.5 Ml Syringe) 2.5 ml FLUSH ASDIRECTED PRN PRN Reason: Keep Vein Open Labs: Laboratory Tests 01/05/21 01/05/21 01/05/21 Range/Units 20:42 20:42 20:42 WBC 3.79 L (4.0-11.0) K/uL RBC 4.94 (4.50-5.90) M/uL Hgb 15.3 (13.0-17.0) g/dL Hct 43.8 (38.0-50.0) % MCV 88.7 (80.0-98.0) fL MCH 31.0 (27.0-32.0) pg MCHC 34.9 (31.0-37.0) g/dL RDW Std Deviation 39.8 (28.0-62.0) fl RDW Coeff of Jimmy 12 (11.0-15.0) % Plt Count 193 (150-400) K/uL MPV 10.30 (7.40-12.00) fL Neut % (Auto) 57.7 (48.0-80.0) % Lymph % (Auto) 30.1 (16.0-40.0) % [place] % (Auto) 11.6 (0.0-15.0) % Eos % (Auto) 0.3 (0.0-7.0) % Baso % (Auto) 0.3 (0.0-1.5) % Neut # (Auto) 2.2 (1.4-5.7) K/uL Lymph # (Auto) 1.1 (0.6-2.4) K/uL [place] # (Auto) 0.4 (0.0-0.8) K/uL Eos # (Auto) 0.0 (0.0-0.7) K/uL Baso # (Auto) 0.0 (0.0-0.1) K/uL Nucleated RBC % 0.7 /100WBC Nucleated RBCs # 0 K/uL D-Dimer, Quantitative (0.0-0.50) mg/L FEU Sodium 132 L (136-148) mmol/L Potassium 4.7 (3.5-5.1) mmol/L Chloride 100 (98-107) mmol/L Carbon Dioxide 23.7 (21.0-32.0) mmol/L BUN 17 (7.0-18.0) mg/dL Creatinine 1.4 H (0.8-1.3) mg/dL Est Cr Clr Drug Dosing 63.13 mL/min Estimated GFR (MDRD) 52.1 ml/min Glucose 472 H (74-106) mg/dL Calcium 8.5 (8.5-10.1) mg/dL Total Bilirubin 0.5 (0.2-1.0) mg/dL AST 68 H (15-37) IU/L ALT 136 H (14-63) IU/L Alkaline Phosphatase 88 (46-116) U/L Troponin I < 0.050 (0.000-0.056) ng/mL B-Natriuretic Peptide (<100) PG/ML Total Protein 7.3 (6.4-8.2) g/dL Albumin 3.4 (3.4-5.0) g/dL Globulin 3.9 (2.6-4.0) g/dL Albumin/Globulin Ratio 0.9 (0.9-1.6) Influenza Type A RNA NEGATIVE (NEGATIVE) Influenza Type B RNA NEGATIVE (NEGATIVE) SARS-CoV-2 RNA (JAYLYN) POSITIVE H (NEGATIVE) 09/25/21 09/25/21 Range/Units 20:42 20:42 WBC (4.0-11.0) K/uL RBC (4.50-5.90) M/uL Hgb (13.0-17.0) g/dL Hct (38.0-50.0) % MCV (80.0-98.0) fL MCH (27.0-32.0) pg MCHC (31.0-37.0) g/dL RDW Std Deviation (28.0-62.0) fl RDW Coeff of Jimmy (11.0-15.0) % Plt Count (150-400) K/uL MPV (7.40-12.00) fL Neut % (Auto) (48.0-80.0) % Lymph % (Auto) (16.0-40.0) % [place] % (Auto) (0.0-15.0) % Eos % (Auto) (0.0-7.0) % Baso % (Auto) (0.0-1.5) % Neut # (Auto) (1.4-5.7) K/uL Lymph # (Auto) (0.6-2.4) K/uL [place] # (Auto) (0.0-0.8) K/uL Eos # (Auto) (0.0-0.7) K/uL Baso # (Auto) (0.0-0.1) K/uL Nucleated RBC % /100WBC Nucleated RBCs # K/uL D-Dimer, Quantitative 0.37 (0.0-0.50) mg/L FEU Sodium (136-148) mmol/L Potassium (3.5-5.1) mmol/L Chloride (98-107) mmol/L Carbon Dioxide (21.0-32.0) mmol/L BUN (7.0-18.0) mg/dL Creatinine (0.8-1.3) mg/dL Est Cr Clr Drug Dosing mL/min Estimated GFR (MDRD) ml/min Glucose (74-106) mg/dL Calcium (8.5-10.1) mg/dL Total Bilirubin (0.2-1.0) mg/dL AST (15-37) IU/L ALT (14-63) IU/L Alkaline Phosphatase (46-116) U/L Troponin I (0.000-0.056) ng/mL B-Natriuretic Peptide 5 (<100) PG/ML Total Protein (6.4-8.2) g/dL Albumin (3.4-5.0) g/dL Globulin (2.6-4.0) g/dL Albumin/Globulin Ratio (0.9-1.6) Influenza Type A RNA (NEGATIVE) Influenza Type B RNA (NEGATIVE) SARS-CoV-2 RNA (JAYLYN) (NEGATIVE) Meds: Medications Generic Name Dose Route Start Last Admin Trade Name Freq PRN Reason Stop Dose Admin Sodium Chloride 10 ml 01/05/21 20:13 Sodium Chloride 0.9% 10 Ml Syringe FLUSH ASDIRECTED PRN Keep Vein Open Sodium Chloride 2.5 ml 01/05/21 20:13 Sodium Chloride 0.9% 2.5 Ml Syringe FLUSH ASDIRECTED PRN Keep Vein Open Discontinued Medications Generic Name Dose Route Start Last Admin Trade Name Freq PRN Reason Stop Dose Admin Sodium Chloride 1,000 mls @ 999 mls/hr 01/05/21 20:19 01/05/21 20:42 Normal Saline IV 01/05/21 21:19 999 mls/hr .Bolus ONE Administration Departure - Departure Time of Disposition: 22:26 Disposition: Home, Self-Care 01 Condition: Good Clinical Impression: COVID-19 virus infection, Morbid obesity, Diabetes, Hyperglycemia - Discharge Information Instructions: Emergency Use Authorization (EUA) of the [employer] COVID-19 Vaccine: Fact Sheet for Recipients and Caregivers - FDA (10/05/2020), 10 Things You Can Do to Manage Your COVID-19 Symptoms at Home - CDC (10/26/2020), Diabetes Mellitus and Standards of Medical Care, COVID-19 Frequently Asked Questions, Prone Position Therapy, COVID-19: Quarantine vs. Isolation - CDC (03/29/2020) Referrals: Ramos Beckford MD [Primary Care Provider] - Forms: ED Department Discharge Additional Instructions: You were seen and evaluated in the ER today secondary to signs and symptoms of coronavirus. Your coronavirus test today was indeed positive. We have discussed with you the risks and benefits of Regeneron therapy and you will be notified by an individual on Thursday regarding a fusion appointment they can discuss with them any further questions or concerns that you may have. Please return to the ER if you start developing any increased shortness of breath. As we discussed, please purchase a pulse oximeter to help you monitor your oxygen level. 1. Your COVID-19 screening is positive. That means you do have the coronavirus and you are considered contagious. Your vital signs and oxygen saturation are well enough that you were able to monitor your symptoms at home. Continue to monitor for trouble breathing, new confusion or inability to arouse, bluish lips or face or any of the other symptoms we discussed -if this occurs please return to the emergency room. 2. Please self quarantine over the next 10 days. Inform any persons that you have been in contact with since you started becoming symptomatic that you have tested positive; they should be made aware and take the appropriate steps as needed. 3. You can take NyQuil during the evening to help get a restful night sleep. May alternate Tylenol and ibuprofen as needed for pain and fever management. 4. The [facility] will be calling you and following up with you. The [place] COVID 19 Hotline phone number , They are open Thursday - Thursday 7am - 7pm. Follow up with your primary care provider for re-evaluation and re-testing after the 10 day quarantine and discuss when you should be seen. You will be given a prescription for prednisone. The following information is given to patients seen in the emergency department who are being discharged to home. This information is to outline your options for follow-up care. We provide all patients seen in our emergency department with a follow-up referral. The need for follow-up, as well as the timing and circumstances, are variable depending upon the specifics of your emergency department visit. If you don't have a primary care physician on staff, we will provide you with a referral. We always advise you to contact your personal physician following an emergency department visit to inform them of the circumstance of the visit and for follow-up with them and/or the need for any referrals to a consulting specialist. The emergency department will also refer you to a specialist when appropriate. This referral assures that you have the opportunity for follow-up care with a specialist. All of these measure are taken in an effort to provide you with optimal care, which includes your follow-up. Under all circumstances we always encourage you to contact your private physic everardo who remains a resource for coordinating your care. When calling for follow- up care, please make the office aware that this follow-up is from your recent emergency room visit. If for any reason you are refused follow-up, please contact the [facility] Emergency Department at and asked to speak to the emergency department charge nurse. [facility] [address] [place] [id number] [facility] [address] [place] [id number] Sepsis Event Note (ED) - Evaluation Sepsis Screening Result: No Definite Risk - Focused Exam Vital Signs: Vital Signs Temp Pulse Resp BP Pulse Ox 01/05/21 22:15 101 H 92 L 01/05/21 19:58 99.4 F 104 H 20 150/104 H 92 L - My Orders Last 24 Hours: My Active Orders 01/05/21 20:13 Sodium Chloride 0.9% [Saline Flush] 10 ml FLUSH ASDIRECTED PRN Sodium Chloride 0.9% [Saline Flush] 2.5 ml FLUSH ASDIRECTED PRN Saline Lock Insert [OM.PC] Stat 01/05/21 20:14 Isolation [COMM] Routine - Assessment/Plan Last 24 Hours: My Active Orders 01/05/21 20:13 Sodium Chloride 0.9% [Saline Flush] 10 ml FLUSH ASDIRECTED PRN Sodium Chloride 0.9% [Saline Flush] 2.5 ml FLUSH ASDIRECTED PRN Saline Lock Insert [OM.PC] Stat 01/05/21 20:14 Isolation [COMM] Routine
--- NOTE | 2021-01-05 21:12 | CR ---
INDICATION: Cough. TECHNIQUE: Chest 1 view. COMPARISON: None. FINDINGS: No focal consolidation, pleural effusion, or pneumothorax. Normal heart size and pulmonary vascularity. The bones are unremarkable. IMPRESSION: No acute cardiopulmonary findings. Dictated by Hamida Moran MD @ 01/05/2021 9:11:33 PM (Electronically Signed)
[2021-01-05 21:18] LABS: BLOOD UREA NITROGEN,BUN 17 mg/dL (7.0-18.0); CARBON DIOXIDE,CO2 23.7 mmol/L (21.0-32.0); CHLORIDE,CL 100 mmol/L (98-107); GLUCOSE RANDOM 472 mg/dL (74-106); POTASSIUM,K 4.7 mmol/L (3.5-5.1); SODIUM,NA 132 mmol/L (136-148)
[2021-01-05 21:34] LABS: CORONAVIRUS COVID-19 NAA POSITIVE (NEGATIVE); INFLUENZA A NAA NEGATIVE (NEGATIVE); INFLUENZA B NAA NEGATIVE (NEGATIVE)
[2021-01-05] MEDS ORDERED: Dexamethasone 10 MG/ML SDV IVPUSH ONE (22:28)
== END 2021-01-05 22:56 | disposition home or self-care (01) ==
LOC: MW.ED 19:55
DX: U07.1 COVID-19 (principal); E11.65 Type 2 diabetes mellitus with hyperglycemia; E66.01 Morbid (severe) obesity due to excess calories; Z68.41 Body mass index [BMI] 40.0-44.9, adult; I25.10 Atherosclerotic heart disease of native coronary artery without angina pectoris; Z79.84 Long term (current) use of oral hypoglycemic drugs; Z79.899 Other long term (current) drug therapy
CPT/HCPCS: 0240U; 36415; 71045; 80053; 83880; 84484; 85025; 85379; 93005; 99284; J7030

== ENCOUNTER 2021-01-14 13:25 | Emergency (ER) | payer OTHER ==
[2021-01-14] MEDS ORDERED: Sodium Chloride 0.9% 1,000 ML IV ONE (14:36)
--- NOTE | 2021-01-14 15:29 | CR ---
INDICATION: sob, w/ covid. prior 01-05-21 TECHNIQUE: Chest 1 view. COMPARISON: 01/05/21 FINDINGS: Cardiovascular and mediastinum: Heart size and vasculature are normal in caliber and appearance. Mediastinum is within normal limits. Lungs and pleural space: Lungs are clear. No sign of infiltrate or mass. No sign of pleural effusion. No pneumothorax. Bones and soft tissues: No significant findings. IMPRESSION: Unremarkable chest. Dictated by: Landen Damon MD @ 01/14/2021 15:28:53 (Electronically Signed)
--- NOTE | 2021-01-14 15:31 | EDM.PDOC ---
ED HPI GENERAL MEDICAL PROBLEM - General Chief Complaint: Diabetic Complaint Stated Complaint: WEAKNESS, DEHYRDATION, HIGH BLOOD SUGAR Time Seen by Provider: 01/14/21 13:33 Source of Information: Reports: Patient History Limitations: Reports: No Limitations - History of Present Illness INITIAL COMMENTS - FREE TEXT/NARRATIVE: HISTORY AND PHYSICAL: History of present illness: Patient is a 60-year-old male who presents to the emergency room with complaints of fatigue, cough, elevated blood sugars with COVID-19. Patient states he was diagnosed with COVID-19 on 01/05/2021. Patient is a type II diabetic and has noticed his blood sugars have been elevated. He did receive Decadron on 01/05/2021 and has been taking prescribed steroids at home for COVID-19 infection. Patient denies any fever, chills, headache, change in vision, syncope or near syncope. Denies any chest pain, back pain, shortness of breath or cough. Denies any abdominal pain, nausea, vomiting, diarrhea, constipation or dysuria. Has not noted any blood in urine or stool. Patient has been eating and drinking appropriately. No recent travel or sick contacts. Review of systems: As per history of present illness and below otherwise all systems reviewed and negative. Past medical history: As per history of present illness and as reviewed below otherwise noncontributory. Surgical history: As per history of present illness and as reviewed below otherwise noncontributory. Social history: See social history for further information Family history: As per history of present illness and as reviewed below otherwise noncontributory. Physical exam: General: Well developed and well nourished. Alert and orientated x 3. Nontoxic in appearance and in no acute distress. Vital signs are stable and have been reviewed by me. Nursing notes were reviewed. HEENT: Atraumatic, normocephalic, pupils equal and reactive bilaterally, negative for conjunctival pallor or scleral icterus, mucous membranes moist, TMs normal bilaterally, throat clear, neck supple, nontender, trachea midline. No drooling or trismus noted. No meningeal signs. No hot potato voice noted. Lungs: Clear to auscultation bilaterally. No wheezes, rales, or rhonchi. Chest nontender. Normal work of breathing, no accessory muscles used. Heart: S1S2, regular rate and rhythm without overt murmur, gallops, or rubs. No JVD. No peripheral edema Abdomen: Soft, nondistended, nontender. Normoactive bowel sounds. Negative for masses or costovertebral tenderness. Skin: Intact, warm, dry. No lesions or rashes noted. Hematologic: No petechiae or purpra. Mucosa appropriate color and normal nail bed color and refill. Extremities: Atraumatic, moves all extremities per self without difficulty or deficits, negative for cords or calf pain. Neurovascular unremarkable. Neuro: Awake, alert, oriented. Cranial nerves II through XII unremarkable. Cerebellum unremarkable. Motor and sensory unremarkable throughout. Exam nonfocal. Psychiatric: Mood and affect are appropriate. Normal thought process. Answering questions appropriately. Please note that the patient was seen and evaluated during the 2019 SARS-CoV-2 novel coronavirus pandemic period. Community viral transmission is ongoing at time of this encounter and the emergency department is operating under pandemic response procedures. Medical Decision Making: Patient is a 60-year-old male who presents to the emergency room with complaints of elevated blood sugar, fatigue and cough with recent COVID-19 diagnoses. He had just came from the oncology unit after his Regeneron infusion. He states he is concerned the symptoms are not normal with COVID-19 infection. Physical exam is unremarkable. His vital signs are stable. Lab work is unremarkable with the exception of elevated blood sugar. This is likely due to his steroid use with his COVID-19 infection. Encouraged him to monitor this closely and follow-up with his primary care provider if this continues. I have talked with the patient about today's findings, in addition to providing specific details for plan of care. Reassessment at the time of disposition demonstrates that the patient is in no acute distress. The patient is stable for discharge, counseling was provided and we discussed in great detail signs and symptoms that would prompt them to return to the Emergency Department. Medication, follow up and supportive care measures were reviewed and discussed. Voices understanding and is agreeable to plan of care. Denies any further questions or concerns at this time. Diagnostics: CBC, CMP, CXR Therapeutics: IV fluid Prescription: None Impression: COVID 19 Hyperglycemia Plan: 1. Today you were evaluated on an emergent basis. Your lab work is within normal limits, with the exception of elevated blood sugar. Continue to monitor. If your sugar remains elevated once your COVID infection has cleared, follow up with your primary care provider. Your chest x-ray shows no evidence of infection/pneumonia. Your vital signs and oxygen saturation are well enough that you were able to monitor your symptoms at home. Continue to monitor for trouble breathing, new confusion or inability to arouse, bluish lips or face or any of the other symptoms we discussed -if this occurs please return to the emergency room immediately. 2. Please self quarantine until cleared by [facility] Department. Inform any persons that you have been in contact with since you started becoming symptomatic that you have tested positive; they should be made aware and take the appropriate steps as needed. 3. You can take NyQuil during the evening to help get a restful night sleep. May alternate Tylenol and ibuprofen as needed for pain and fever management. 4. The [facility] department will be calling you and following up with you. The [employer] Hotline phone number , They are open Thursday - Thursday 7am - 7pm. Follow up with your primary care provider for re-evaluation as directed. Definitive disposition and diagnosis as appropriate pending reevaluation and review of above. - Related Data Allergies Allergy/AdvReac Type Severity Reaction Status Date / Time No Known Allergies Allergy Verified 01/05/21 20:01 Home Meds: Home Meds metFORMIN HCl [Metformin HCl] 1,000 mg PO BID 05/03/18 [History] Dulaglutide [Trulicity] 1 injection SQ WEEKLY 04/13/20 [History] Empagliflozin [Jardiance] 1 tab PO DAILY 04/13/20 [History] diazePAM [Valium] 4 mg PO TID PRN 3 Days #12 tab 04/13/20 [Rx] Acetaminophen/oxyCODONE [Percocet 325-5 MG] 1 each PO Q6HR PRN 5 Days #20 tab 04/17/20 [Rx] Metaxalone 800 mg PO TID 04/17/20 [History] predniSONE [Prednisone] 10 mg PO DAILY 04/17/20 [History] predniSONE [Prednisone] 50 mg PO DAILY #5 tablet 01/05/21 [Rx] Past Medical History - Past Health History Medical/Surgical History: Denies Medical/Surgical History HEENT History: Reports: Hard of Hearing Other HEENT History: has bilateral hearing aides but doesn't wear them all the time, uses reading glasses Cardiovascular History: Reports: CAD Respiratory History: Reports: Other (See Below) Gastrointestinal History: Reports: Chronic Diarrhea, GERD, Hepatitis Other Gastrointestinal History: hx of Hepatitis C- had taken medication and is cleared Musculoskeletal History: Reports: Fracture Other Musculoskeletal History: hx of fx wrist Endocrine/Metabolic History: Reports: Diabetes, Type II, Obesity/BMI 30+ - Infectious Disease History Infectious Disease History: Reports: Chicken Pox, Hepatitis C, Measles - Past Surgical History Head Surgeries/Procedures: Reports: None GI Surgical History: Reports: Appendectomy Musculoskeletal Surgical History: Reports: Other (See Below) Other Musculoskeletal Surgeries/Procedures:: Right Biceps Tendon Repair Social & Family History - Family History Family Medical History: No Pertinent Family History - Tobacco Use Tobacco Use Status *Q: Never Tobacco User - Recreational Drug Use Recreational Drug Use: No ED ROS GENERAL - Review of Systems Review Of Systems: Comprehensive ROS is negative, except as noted in HPI. ED EXAM GENERAL NO PERIP PULSE - Physical Exam Exam: See Below (See dictation) Course - Vital Signs Last Recorded V/S: Last Vital Signs Temp 97.3 F 01/14/21 13:45 Pulse 96 01/14/21 15:25 Resp 18 01/14/21 13:45 BP 133/88 01/14/21 14:48 Pulse Ox 95 01/14/21 15:25 - Orders/Labs/Meds Labs: Laboratory Tests 01/14/21 01/14/21 Range/Units 15:02 15:02 WBC 7.11 (4.0-11.0) K/uL RBC 5.10 (4.50-5.90) M/uL Hgb 16.1 (13.0-17.0) g/dL Hct 45.6 (38.0-50.0) % MCV 89.4 (80.0-98.0) fL MCH 31.6 (27.0-32.0) pg MCHC 35.3 (31.0-37.0) g/dL RDW Std Deviation 39.6 (28.0-62.0) fl RDW Coeff of Jimmy 12 (11.0-15.0) % Plt Count 397 (150-400) K/uL MPV 10.30 (7.40-12.00) fL Neut % (Auto) 62.1 (48.0-80.0) % Lymph % (Auto) 28.6 (16.0-40.0) % Ray % (Auto) 7.7 (0.0-15.0) % Eos % (Auto) 1.3 (0.0-7.0) % Baso % (Auto) 0.3 (0.0-1.5) % Neut # (Auto) 4.4 (1.4-5.7) K/uL Lymph # (Auto) 2.0 (0.6-2.4) K/uL Ray # (Auto) 0.6 (0.0-0.8) K/uL Eos # (Auto) 0.1 (0.0-0.7) K/uL Baso # (Auto) 0.0 (0.0-0.1) K/uL Nucleated RBC % 0.0 /100WBC Nucleated RBCs # 0 K/uL Sodium 135 L (136-148) mmol/L Potassium 4.7 (3.5-5.1) mmol/L Chloride 101 (98-107) mmol/L Carbon Dioxide 25.8 (21.0-32.0) mmol/L BUN 21 H (7.0-18.0) mg/dL Creatinine 1.5 H (0.8-1.3) mg/dL Est Cr Clr Drug Dosing 58.92 mL/min Estimated GFR (MDRD) 48.1 ml/min Glucose 346 H (74-106) mg/dL Calcium 9.5 (8.5-10.1) mg/dL Total Bilirubin 0.4 (0.2-1.0) mg/dL AST 45 H (15-37) IU/L Alkaline Phosphatase 94 (46-116) U/L Total Protein 7.9 (6.4-8.2) g/dL Albumin 3.6 (3.4-5.0) g/dL Globulin 4.3 H (2.6-4.0) g/dL Albumin/Globulin Ratio 0.8 L (0.9-1.6) Meds: Medications Discontinued Medications Generic Name Dose Route Start Last Admin Trade Name Freq PRN Reason Stop Dose Admin Sodium Chloride 1,000 mls @ 999 mls/hr 01/14/21 14:36 01/14/21 14:48 Normal Saline IV 01/14/21 15:36 999 mls/hr STAT ONE Administration Departure - Departure Time of Disposition: 15:47 Disposition: Home, Self-Care 01 Clinical Impression: Hyperglycemia, COVID-19 virus infection - Discharge Information Referrals: PCP,None [Primary Care Provider] - Forms: ED Department Discharge Additional Instructions: The following information is given to patients seen in the emergency department who are being discharged to home. This information is to outline your options for follow-up care. We provide all patients seen in our emergency department with a follow-up referral. The need for follow-up, as well as the timing and circumstances, are variable depending upon the specifics of your emergency department visit. If you don't have a primary care physician on staff, we will provide you with a referral. We always advise you to contact your personal physician following an emergency department visit to inform them of the circumstance of the visit and for follow-up with them and/or the need for any referrals to a consulting specialist. The emergency department will also refer you to a specialist when appropriate. This referral assures that you have the opportunity for follow-up care with a specialist. All of these measure are taken in an effort to provide you with optimal care, which includes your follow-up. Under all circumstances we always encourage you to contact your private physician who remains a resource for coordinating your care. When calling for follow-up care, please make the office aware that this follow-up is from your recent emergency room visit. If for any reason you are refused follow-up, please contact the [facility] Emergency Department at and asked to speak to the emergency department charge nurse. [facility] [address] [place] [id number] [id number] Thank you for choosing the [facility] emergency department in [place] for your medical needs today. It was a pleasure caring for you. Today you were seen in the emergency department for COVID-19 infection and high blood sugar. 1. Today you were evaluated on an emergent basis. Your lab work is within normal limits, with the exception of elevated blood sugar. Continue to monitor. If your sugar remains elevated once your COVID infection has cleared, follow up with your primary care provider. Your chest x-ray shows no evidence of infection/pneumonia. Your vital signs and oxygen saturation are well enough that you were able to monitor your symptoms at home. Continue to monitor for trouble breathing, new confusion or inability to arouse, bluish lips or face or any of the other symptoms we discussed -if this occurs please return to the emergency room immediately. 2. Please self quarantine until cleared by [facility] Department. Inform any persons that you have been in contact with since you started becoming symp tomatic that you have tested positive; they should be made aware and take the appropriate steps as needed. 3. You can take NyQuil during the evening to help get a restful night sleep. May alternate Tylenol and ibuprofen as needed for pain and fever management. 4. The [facility] department will be calling you and following up with you. The [place] COVID 19 Hotline phone number , They are open Thursday - Thursday 7am - 7pm. Follow up with your primary care provider for re-evaluation as directed. Sepsis Event Note (ED) - Evaluation Sepsis Screening Result: No Definite Risk - Focused Exam Vital Signs: Vital Signs Temp Pulse Resp BP Pulse Ox 01/14/21 15:25 96 95 01/14/21 14:48 89 133/88 93 L 01/14/21 13:45 97.3 F 79 18 140/84 94 L
[2021-01-14 15:41] LABS: CARBON DIOXIDE,CO2 25.8 mmol/L (21.0-32.0); POTASSIUM,K 4.7 mmol/L (3.5-5.1)
== END 2021-01-14 16:05 | disposition home or self-care (01) ==
LOC: MW.ED 13:25
DX: U07.1 COVID-19 (principal); E11.65 Type 2 diabetes mellitus with hyperglycemia; I25.10 Atherosclerotic heart disease of native coronary artery without angina pectoris; E66.9 Obesity, unspecified; Z68.41 Body mass index [BMI] 40.0-44.9, adult; Z79.84 Long term (current) use of oral hypoglycemic drugs; Z79.899 Other long term (current) drug therapy
CPT/HCPCS: 36415; 71045; 80053; 85025; 99285; J7030

== ENCOUNTER 2021-02-22 15:11 | Emergency (ER) | payer OTHER ==
[2021-02-22] MEDS ORDERED: Ketorolac 30 MG/ML SDV IVPUSH ONE (15:49)
[2021-02-22] MEDS ORDERED: Diazepam 5 MG Tab PO ONE (15:49)
--- NOTE | 2021-02-22 15:59 | EDM.PDOC ---
ED HPI GENERAL MEDICAL PROBLEM - General Chief Complaint: Back Pain or Injury Stated Complaint: BACK PAIN Time Seen by Provider: 02/22/21 15:31 - History of Present Illness INITIAL COMMENTS - FREE TEXT/NARRATIVE: 60-year-old male with a history of diabetes presenting with acute back pain. Patient does have a history of lower back pain. Actually has a history of surgery for cauda equina in April 2020. This was done up in [place]. He has been back to work for some time. He does have some occasional on and off back discomfort particularly with working and he was told that this was normal. Today he stood up from his recliner and had sudden and severe lower to right lower back pain with some radiation into the right leg. Patient family very concerned because of prior history of cauda equina. No fevers or chills no ur inary or bowel incontinence. No abdominal pain no nausea or vomiting patient has a severe worsening of his symptoms with any movement. Pain currently severe lower back Pain Score (Numeric/FACES): 10 - Related Data Allergies Allergy/AdvReac Type Severity Reaction Status Date / Time No Known Allergies Allergy Verified 01/05/21 20:01 Home Meds: Home Meds metFORMIN HCl [Metformin HCl] 1,000 mg PO BID 05/03/18 [History] Dulaglutide [Trulicity] 1 injection SQ WEEKLY 04/13/20 [History] Empagliflozin [Jardiance] 1 tab PO DAILY 04/13/20 [History] Ketorolac [Toradol] 10 mg PO TID PRN 5 Days #15 tab 02/22/21 [Rx] diazePAM [Valium.] 5 mg PO BEDTIME PRN 5 Days #5 tab 02/22/21 [Rx] Past Medical History - Past Health History Medical/Surgical History: Denies Medical/Surgical History HEENT History: Reports: Hard of Hearing Other HEENT History: has bilateral hearing aides but doesn't wear them all the time, uses reading glasses Cardiovascular History: Reports: CAD Respiratory History: Reports: Other (See Below) Gastrointestinal History: Reports: Chronic Diarrhea, GERD, Hepatitis Other Gastrointestinal History: hx of Hepatitis C- had taken medication and is cleared Genitourinary History: Reports: None Musculoskeletal History: Reports: Fracture Other Musculoskeletal History: hx of fx wrist Neurological History: Reports: None Psychiatric History: Reports: None Endocrine/Metabolic History: Reports: Diabetes, Type II, Obesity/BMI 30+ Hematologic History: Reports: None Immunologic History: Reports: None Oncologic (Cancer) History: Reports: None Dermatologic History: Reports: None - Infectious Disease History Infectious Disease History: Reports: Chicken Pox, Hepatitis C, Measles - Past Surgical History Head Surgeries/Procedures: Reports: None GI Surgical History: Reports: Appendectomy Musculoskeletal Surgical History: Reports: Other (See Below) Other Musculoskeletal Surgeries/Procedures:: Right Biceps Tendon Repair, back sx Social & Family History - Family History Family Medical History: No Pertinent Family History - Tobacco Use Tobacco Use Status *Q: Never Tobacco User - Caffeine Use Caffeine Use: Reports: Soda - Recreational Drug Use Recreational Drug Use: No ED ROS GENERAL - Review of Systems Review Of Systems: See Below Free Text/Narrative/Comment: General: No fever. Skin: No rash. Eyes: No vision problems. ENT: No sore throat. Neck: No neck stiffness. Respiratory: No shortness of breath. Cardiac: No chest pain. Gastrointestinal: No nausea, vomiting or abdominal pain. Urinary: No dysuria. Musculoskeletal: Per HPI Neurologic: No headache. ED EXAM, GENERAL - Physical Exam Exam: See Below Free Text/Narrative:: General Appearance: No acute distress, appears comfortable Skin: No rash HEENT: Normocephalic/atraumatic, sclera anicteric, mucous membranes moist Neck: Normal range of motion Chest and Lungs: Bilateral breath sounds, clear to auscultation Cardiovascular: Regular rate and rhythm Abdomen: Soft, non-tender Back: Lumbar spine incision is well-healed without clear deformity there is tenderness without deformity L3-L5 there is right paravertebral tenderness with palpable muscle spasm, 5 out of 5 strength in the bilateral hips and abduction and abduction as well as flexion and extension, 5 out of 5 strength bilateral knees and bilateral ankles, sensation is grossly intact he does have paresthesias along the right lateral thigh Musculoskeletal: No edema or tenderness Neurologic: Awake, alert, no obvious deficits, moving all extremities Psychiatric: Appropriate, cooperative Course - Vital Signs Last Recorded V/S: Last Vital Signs Temp 98.3 F 02/22/21 15:30 Pulse 71 02/22/21 15:30 Resp 20 02/22/21 15:30 BP 125/86 02/22/21 15:30 Pulse Ox 95 02/22/21 15:30 - Orders/Labs/Meds Labs: Laboratory Tests 02/22/21 02/22/21 02/22/21 Range/Units 16:39 16:39 16:39 WBC 5.72 (4.0-11.0) K/uL RBC 5.14 (4.50-5.90) M/uL Hgb 16.0 (13.0-17.0) g/dL Hct 46.9 (38.0-50.0) % MCV 91.2 (80.0-98.0) fL MCH 31.1 (27.0-32.0) pg MCHC 34.1 (31.0-37.0) g/dL RDW Std Deviation 42.3 (28.0-62.0) fl RDW Coeff of Jimmy 13 (11.0-15.0) % Plt Count 305 (150-400) K/uL MPV 10.20 (7.40-12.00) fL Neut % (Auto) 54.8 (48.0-80.0) % Lymph % (Auto) 34.3 (16.0-40.0) % [place] % (Auto) 7.7 (0.0-15.0) % Eos % (Auto) 2.3 (0.0-7.0) % Baso % (Auto) 0.9 (0.0-1.5) % Neut # (Auto) 3.1 (1.4-5.7) K/uL Lymph # (Auto) 2.0 (0.6-2.4) K/uL [place] # (Auto) 0.4 (0.0-0.8) K/uL Eos # (Auto) 0.1 (0.0-0.7) K/uL Baso # (Auto) 0.1 (0.0-0.1) K/uL Nucleated RBC % 0.0 /100WBC Nucleated RBCs # 0 K/uL ESR 4 (0-19) mm/hr Sodium 140 (136-148) mmol/L Potassium 4.4 (3.5-5.1) mmol/L Chloride 104 (98-107) mmol/L Carbon Dioxide 29.6 (21.0-32.0) mmol/L BUN 17 (7.0-18.0) mg/dL Creatinine 1.2 (0.8-1.3) mg/dL Est Cr Clr Drug Dosing 73.65 mL/min Estimated GFR (MDRD) > 60.0 ml/min Glucose 139 H (74-106) mg/dL Calcium 8.6 (8.5-10.1) mg/dL C-Reactive Protein 0.30 (0.00-0.90) mg/dL Meds: Medications Discontinued Medications Generic Name Dose Route Start Last Admin Trade Name Freq PRN Reason Stop Dose Admin Diazepam 5 mg 02/22/21 15:49 02/22/21 16:53 Diazepam 5 Mg Tab PO 02/22/21 15:50 5 mg ONETIME ONE Administration Ketorolac Tromethamine 15 mg 02/22/21 15:49 02/22/21 16:39 Ketorolac 30 Mg/Ml Sdv IVPUSH 02/22/21 15:50 15 mg ONETIME ONE Administration Departure - Departure Time of Disposition: 17:30 Disposition: Home, Self-Care 01 Condition: Good Clinical Impression: Lower back pain - Discharge Information *PRESCRIPTION DRUG MONITORING PROGRAM REVIEWED*: Yes *COPY OF PRESCRIPTION DRUG MONITORING REPORT IN PATIENT MITA: No Prescriptions: Ketorolac [Toradol] 10 mg PO TID PRN 5 Days #15 tab PRN Reason: back pain diazePAM [Valium.] 5 mg PO BEDTIME PRN 5 Days #5 tab PRN Reason: Muscle Spasm - Painful Instructions: Acute Back Pain, Adult Referrals: Ramos Beckford MD [Primary Care Provider] - Forms: ED Department Discharge Additional Instructions: Your labs today showed no signs of any type of infectious process in your back and the CT scan showed no signs of abnormal swelling or fluid pockets nor any signs of broken bones. Your symptoms and exam today did not show any signs of spinal cord compression. If you develop numbness in your genitals your inner thigh trouble with urinating or defecating on your self or lower extremity weakness please seek care right away as these can be signs of spinal cord compression. I encourage you to follow-up with your primary care doctor. You can make an appointment at one of the primary clinics listed below. [facility] - Primary Care [address] [place] [id number] [address] You can take the Toradol during the day for pain and Valium at night for muscle relaxation but it is important you do not drive on the Valium and that you do not combine it with any alcohol or other drugs. Your symptoms should improve in the coming days. The following information is given to patients seen in the emergency department who are being discharged to home. This information is to outline your options for follow-up care. We provide all patients seen in our emergency department with a follow-up referral. The need for follow-up, as well as the timing and circumstances, are variable depending upon the specifics of your emergency department visit. If you don't have a primary care physician on staff, we will provide you with a referral. We always advise you to contact your personal physician following an emergency department visit to inform them of the circumstance of the visit and for follow-up with them and/or the need for any referrals to a consulting specialist. The emergency department will also refer you to a specialist when appropriate. This referral assures that you have the opportunity for follow-up care with a specialist. All of these measure are taken in an effort to provide you with optimal care, which includes your follow-up. Under all circumstances we always encourage you to contact your private physician who remains a resource for coordinating your care. When calling for follow-up care, please make the office aware that this follow-up is from your recent emergency room visit. If for any reason you are refused follow-up, please contact the [facility] Emergency Department at and asked to speak to the emergency department charge nurse. Sepsis Event Note (ED) - Evaluation Sepsis Screening Result: No Definite Risk - Focused Exam Vital Signs: Vital Signs Temp Pulse Resp BP Pulse Ox 02/22/21 15:30 98.3 F 71 20 125/86 95 - Assessment/Plan Assessment:: 60-year-old male present with signs symptoms most consistent with a lumbar radic ulopathy. Possibility of cauda equina carefully considered and thus far there is no evidence for this however further exam will be necessary when the patient is in bed. Epidural abscess felt unlikely but considered discitis osteomyelitis likewise felt unlikely but considered. CBC CMP ESR and CRP are pending. If neurologic exam proves abnormal for labs are concerning for acute infective process and patient may require transfer for emergent MRI. 1730: Labs and imaging are reassuring. ESR CRP are normal no findings of space- occupying lesions on CT scan. Patient given Valium and Toradol here with some symptomatic improvement. Will discharge with Valium and Toradol return precautions discussed and understood importance of PCP follow-up discussed and understood
--- NOTE | 2021-02-22 16:47 | CT ---
INDICATION: Acute low back pain. TECHNIQUE: CT of the lumbar spine without contrast. Coronal and sagittal reformats are included. COMPARISON: Lumbar spine MRI from 04/17/2020. FINDINGS: Five lumbar type vertebral bodies, with the last fully formed disc space referred to as L5-S1. No acute fractures or other acute osseous abnormalities. Mild levoconvex lumbar curvature. Postsurgical changes of L2-3 and L4-5 spinolaminectomies. No large postoperative fluid collection. Mild scarring and granulation tissue within the laminectomy beds. Disc/endplates: Multilevel mild lumbar disc degeneration, with shallow Schmorl`s node deformities and low-grade disc height loss. Findings at individual levels as follows: T12-L1: No spinal canal or neural foraminal stenosis. L1-2: Broad based marginally calcified disc herniation contributes to moderately advanced spinal canal stenosis. No neural foraminal stenosis. L2-3: Postop changes. Bony decompression of the thecal sac dorsally. Residual disc protrusion anteriorly. Probable mild thecal sac effacement. No neural foraminal stenosis. L3-4: Mild disc bulge. Bilateral low-grade facet arthrosis. Mild spinal canal stenosis. No neural foraminal stenosis. L4-5: Postop changes. Bony decompression of the thecal sac dorsally. Moderate disc bulge with overlying osteophytic ridging and central protrusion component. Bilateral facet arthrosis. Bilateral subarticular recess stenosis. Mild left and moderate right neural foraminal stenosis. L5-S1: Mild disc bulge with osteophytic ridging. Bilateral facet arthrosis. No spinal canal or neural foraminal stenosis. IMPRESSION: 1. No acute fractures of acute osseous abnormalities. 2. Interval postsurgical changes of L2-3 and L4-5 spinolaminectomies, with dorsal bony decompression of the thecal sac at these levels. No CT visualized complications. 3. At L1-2, moderately advanced spinal canal stenosis. Stable. 4. At L2-3, improved patency of the spinal canal. 5. At L4-5, improved patency of the spinal canal with residual bilateral subarticular recess stenosis. There is also moderate right neural foraminal stenosis. Please note that all CT scans at this facility use dose modulation, iterative reconstruction, and/or weight-based dosing when appropriate to reduce radiation dose to as low as reasonably achievable. Dictated by Bogdan Whyte MD @ 02/22/2021 4:46:51 PM (Electronically Signed)
[2021-02-22 17:19] LABS: BLOOD UREA NITROGEN,BUN 17 mg/dL (7.0-18.0); CARBON DIOXIDE,CO2 29.6 mmol/L (21.0-32.0); CHLORIDE,CL 104 mmol/L (98-107); GLUCOSE RANDOM 139 mg/dL (74-106); POTASSIUM,K 4.4 mmol/L (3.5-5.1); SODIUM,NA 140 mmol/L (136-148)
== END 2021-02-22 17:45 | disposition home or self-care (01) ==
LOC: MW.ED 15:11
DX: M54.50 Low back pain, unspecified (principal); E11.9 Type 2 diabetes mellitus without complications; I25.10 Atherosclerotic heart disease of native coronary artery without angina pectoris; E66.9 Obesity, unspecified; K21.9 Gastro-esophageal reflux disease without esophagitis; Z68.41 Body mass index [BMI] 40.0-44.9, adult; Z79.84 Long term (current) use of oral hypoglycemic drugs; Z79.899 Other long term (current) drug therapy
CPT/HCPCS: 36415; 72131; 80048; 85025; 85652; 86140; 96374; 99284; A9270; J1885

== ENCOUNTER 2021-12-07 14:27 | Emergency (ER) | payer OTHER ==
[2021-12-07 16:46] LABS: CARBON DIOXIDE,CO2 25.1 mmol/L (21.0-32.0); POTASSIUM,K 4.1 mmol/L (3.5-5.1)
== END 2021-12-07 19:23 | disposition home or self-care (01) ==
LOC: MW.ED 14:27
DX: H66.91 Otitis media, unspecified, right ear (principal); I25.10 Atherosclerotic heart disease of native coronary artery without angina pectoris; E11.9 Type 2 diabetes mellitus without complications; K21.9 Gastro-esophageal reflux disease without esophagitis; E66.9 Obesity, unspecified; Z68.41 Body mass index [BMI] 40.0-44.9, adult; Z79.84 Long term (current) use of oral hypoglycemic drugs
CPT/HCPCS: 36415; 70450; 70450-26; 80053; 83735; 84484; 85025; 93005; 93010; 99284

== ENCOUNTER 2022-08-21 21:15 | Emergency (ER) | payer OTHER ==
[2022-08-21] MEDS ORDERED: diphenhydrAMINE 50 MG/ML SDV IVPUSH ONE (21:22)
[2022-08-21] MEDS ORDERED: Metoclopramide 10 MG/2 ML SDV IVPUSH ONE (21:22)
[2022-08-21] MEDS ORDERED: Sodium Chloride 0.9% 1,000 ML IV ONE (21:23)
[2022-08-21 21:35] LABS: BASOPHILS PERCENT AUTO 0.3 % (0.0-1.5); EOSINOPHILS ABSOLUTE AUTO 0.1 K/uL (0.0-0.7); HEMATOCRIT 46.1 % (38.0-50.0); HEMOGLOBIN 16.2 g/dL (13.0-17.0); LYMPHOCYTES ABSOLUTE AUTO 2.7 K/uL (0.6-2.4); LYMPHOCYTES PERCENT AUTO 26.1 % (16.0-40.0); MEAN CORPUSCULAR HGB CONC 35.1 g/dL (31.0-37.0); MEAN CORPUSCULAR VOLUME 88.3 fL (80.0-98.0); MONOCYTES ABSOLUTE AUTO 0.9 K/uL (0.0-0.8); MONOCYTES PERCENT AUTO 8.5 % (0.0-15.0); NEUTROPHILS ABSOLUTE AUTO 6.7 K/uL (1.4-5.7); NEUTROPHILS PERCENT AUTO 64.1 % (48.0-80.0); NRBC ABSOLUTE 0 K/uL; PLATELET COUNT,PLT 274 K/uL (150-400); RED BLOOD CELL COUNT 5.22 M/uL (4.50-5.90); WHITE BLOOD CELL COUNT,WBC 10.38 K/uL (4.0-11.0)
[2022-08-21 21:46] LABS: INR 1.02 (0.86-1.11); PTT,PARTIAL THROMBOPLSTIN TIME 29.3 SEC (23.9-30.7)
[2022-08-21 21:55] LABS: ALANINE AMINOTRANSFERASE,ALT 48 IU/L (14-63); ALBUMIN 3.8 g/dL (3.4-5.0); ALKALINE PHOSPHATASE 90 U/L (46-116); ASPARTATE AMNIOTRANSFERASE,AST 26 IU/L (15-37); BILIRUBIN TOTAL 0.5 mg/dL (0.2-1.0); BLOOD UREA NITROGEN,BUN 21 mg/dL (7.0-18.0); CALCIUM 9.3 mg/dL (8.5-10.1); CARBON DIOXIDE,CO2 23.6 mmol/L (21.0-32.0); CHLORIDE,CL 106 mmol/L (98-107); CREATININE 1.3 mg/dL (0.8-1.3); ESTIMATED GFR 63 mL/min (>60); GLUCOSE RANDOM 220 mg/dL (74-106); POTASSIUM,K 3.9 mmol/L (3.5-5.1); PROTEIN TOTAL,TP 7.5 g/dL (6.4-8.2); SODIUM,NA 140 mmol/L (136-148)
[2022-08-21] MEDS ORDERED: Ketorolac 30 MG/ML SDV IVPUSH ONE (22:14)
== END 2022-08-21 22:41 | disposition home or self-care (01) ==
LOC: MW.ED 21:15
DX: S09.90XA Unspecified injury of head, initial encounter (principal); S50.312A Abrasion of left elbow, initial encounter; S70.312A Abrasion, left thigh, initial encounter; I10 Essential (primary) hypertension; I25.10 Atherosclerotic heart disease of native coronary artery without angina pectoris; E11.9 Type 2 diabetes mellitus without complications; E66.9 Obesity, unspecified; Z68.41 Body mass index [BMI] 40.0-44.9, adult; Z79.84 Long term (current) use of oral hypoglycemic drugs; V49.40XA Driver injured in collision with unspecified motor vehicles in traffic accident, initial encounter; Y92.410 Unspecified street and highway as the place of occurrence of the external cause
CPT/HCPCS: 36415; 70450; 73070; 80053; 85025; 85610; 85730; 96361; 96374; 96375; 99284; J1200; J1885; J2765; J7030; 99283

== ENCOUNTER 2022-11-10 11:21 | Emergency (ER) | payer BC ==
[2022-11-10] MEDS ORDERED: Dexamethasone 10 MG/ML SDV IM STA (11:44)
[2022-11-10] MEDS ORDERED: Diazepam 5 MG Tab PO ONE (11:44)
[2022-11-10] MEDS ORDERED: Ketorolac 30 MG/ML SDV IM ONE (11:44)
== END 2022-11-10 12:54 | disposition home or self-care (01) ==
LOC: MW.ED 11:21
DX: M54.50 Low back pain, unspecified (principal); I25.10 Atherosclerotic heart disease of native coronary artery without angina pectoris; K21.9 Gastro-esophageal reflux disease without esophagitis; E11.9 Type 2 diabetes mellitus without complications; Z79.84 Long term (current) use of oral hypoglycemic drugs
CPT/HCPCS: 96372; 99283; A9270; J1100; J1885; 99284

== ENCOUNTER 2023-03-23 03:51 | Emergency (ER) | payer BC, OTHER ==
[2023-03-23] MEDS ORDERED: Sodium Chloride 0.9% 10 ML Syringe FLUSH PRN (04:10)
[2023-03-23] MEDS ORDERED: Sodium Chloride 0.9% 1,000 ML IV ONE (04:10)
[2023-03-23] MEDS ORDERED: Sodium Chloride 0.9% 2.5 ML Syringe FLUSH PRN (04:10)
[2023-03-23 04:15] LABS: BASOPHILS ABSOLUTE AUTO 0.05 K/uL (0.00-0.20); BASOPHILS PERCENT AUTO 0.5 % (0.0-1.0); EOSINOPHILS ABSOLUTE AUTO 0.28 K/uL (0.00-0.45); EOSINOPHILS PERCENT AUTO 2.6 % (0.0-6.0); HEMATOCRIT 50.4 % (42.0-52.0); HEMOGLOBIN 17.2 g/dL (14.0-18.0); IMMATURE GRAN ABSOLUTE AUTO 0.03 K/uL (0.00-0.05); IMMATURE GRAN PERCENT AUTO 0.3 % (0.0-0.4); LYMPHOCYTES ABSOLUTE AUTO 1.85 K/uL (1.00-4.80); LYMPHOCYTES PERCENT AUTO 17.3 % (24.0-44.0); MEAN CORPUSCULAR HEMOGLOBIN 30.6 pg (28.0-32.0); MEAN CORPUSCULAR HGB CONC 34.1 g/dL (32.0-36.0); MEAN CORPUSCULAR VOLUME 89.7 fL (83.0-99.0); MEAN PLATELET VOLUME 9.5 fL (9.4-12.4); MONOCYTES ABSOLUTE AUTO 0.81 K/uL (0.00-0.80); MONOCYTES PERCENT AUTO 7.6 % (0.0-8.0); NEUTROPHILS ABSOLUTE AUTO 7.65 K/uL (1.80-7.70); NEUTROPHILS PERCENT AUTO 71.7 % (41.0-71.0); PLATELET COUNT,PLT 345 K/uL (150-400); RED BLOOD CELL COUNT 5.62 M/uL (4.52-5.90); WHITE BLOOD CELL COUNT,WBC 10.67 K/uL (3.9-11.3)
[2023-03-23 04:20] LABS: APPEARANCE,URINE CLEAR; BILIRUBIN,URINE NEGATIVE (NEGATIVE); COLOR,URINE YELLOW; GLUCOSE,URINE >=1000 mg/dL (NEGATIVE); KETONES,URINE NEGATIVE (NEGATIVE); LEUKOCYTE ESTERASE,URINE NEGATIVE (NEGATIVE); NITRITE,URINE NEGATIVE (NEGATIVE); OCCULT BLOOD,URINE NEGATIVE (NEGATIVE); PROTEIN,URINE NEGATIVE (NEGATIVE); UROBILINOGEN,URINE 0.2 EU/dL (<2.0)
[2023-03-23 04:28] LABS: ALBUMIN 3.8 g/dL (3.4-5.0); BILIRUBIN TOTAL 0.5 mg/dL (0.2-1.0); CALCIUM 9.2 mg/dL (8.5-10.1); CARBON DIOXIDE,CO2 22.4 mmol/L (21.0-32.0); CREATININE 1.2 mg/dL (0.8-1.3); EST CRCL DRUG DOSING (CG) 71.85 mL/min; PROTEIN TOTAL,TP 7.7 g/dL (6.4-8.2)
== END 2023-03-23 05:20 | disposition home or self-care (01) ==
LOC: MW.ED 03:51
DX: R19.7 Diarrhea, unspecified (principal); R10.9 Unspecified abdominal pain; I25.10 Atherosclerotic heart disease of native coronary artery without angina pectoris; E11.9 Type 2 diabetes mellitus without complications; Z90.49 Acquired absence of other specified parts of digestive tract; Z79.84 Long term (current) use of oral hypoglycemic drugs; Z79.899 Other long term (current) drug therapy
CPT/HCPCS: 36415; 80053; 81003; 83690; 85025; 87635; 96360; 99284; J3490; J7030; 99282; U0002

== ENCOUNTER 2023-09-28 17:31 | Emergency (ER) | payer BC, OTHER ==
[2023-09-28] MEDS: Morphine 2 MG/ML SYRINGE IVPUSH ONE (18:37)
[2023-09-28] MEDS: Ondansetron 4 MG/2 ML SDV IVPUSH ONE (18:37)
[2023-09-28] MEDS: Sodium Chloride 0.9% 10 ML Syringe FLUSH PRN (18:44)
[2023-09-28] MEDS: Sodium Chloride 0.9% 2.5 ML Syringe FLUSH PRN (18:44)
[2023-09-28 18:48] LABS: BASOPHILS ABSOLUTE AUTO 0.04 K/uL (0.00-0.20); BASOPHILS PERCENT AUTO 0.6 % (0.0-1.0); EOSINOPHILS ABSOLUTE AUTO 0.17 K/uL (0.00-0.45); EOSINOPHILS PERCENT AUTO 2.7 % (0.0-6.0); HEMATOCRIT 46.3 % (42.0-52.0); HEMOGLOBIN 15.5 g/dL (14.0-18.0); IMMATURE GRAN ABSOLUTE AUTO 0.01 K/uL (0.00-0.05); IMMATURE GRAN PERCENT AUTO 0.2 % (0.0-0.4); LYMPHOCYTES ABSOLUTE AUTO 2.19 K/uL (1.00-4.80); LYMPHOCYTES PERCENT AUTO 34.5 % (24.0-44.0); MEAN CORPUSCULAR HEMOGLOBIN 30.3 pg (28.0-32.0); MEAN CORPUSCULAR HGB CONC 33.5 g/dL (32.0-36.0); MEAN CORPUSCULAR VOLUME 90.6 fL (83.0-99.0); MEAN PLATELET VOLUME 9.4 fL (9.4-12.4); MONOCYTES ABSOLUTE AUTO 0.62 K/uL (0.00-0.80); MONOCYTES PERCENT AUTO 9.8 % (0.0-8.0); NEUTROPHILS ABSOLUTE AUTO 3.32 K/uL (1.80-7.70); NEUTROPHILS PERCENT AUTO 52.2 % (41.0-71.0); PLATELET COUNT,PLT 267 K/uL (150-400); RED BLOOD CELL COUNT 5.11 M/uL (4.52-5.90); WHITE BLOOD CELL COUNT,WBC 6.35 K/uL (3.9-11.3)
[2023-09-28 19:08] LABS: INR 1.03 (0.86-1.11); PTT,PARTIAL THROMBOPLSTIN TIME 30.5 SEC (23.9-30.7)
[2023-09-28 19:11] LABS: A/G RATIO 0.8 (0.9-1.6); ALBUMIN 3.2 g/dL (3.4-5.0); BILIRUBIN TOTAL 0.4 mg/dL (0.2-1.0); C-REACTIVE PROTEIN 0.24 mg/dL (<0.3); CALCIUM 8.5 mg/dL (8.5-10.1); CREATININE 1.1 mg/dL (0.8-1.3); EST CRCL DRUG DOSING (CG) 88.88 mL/min; MAGNESIUM 2.1 mg/dL (1.8-2.4); POTASSIUM,K 4.3 mmol/L (3.5-5.1)
== END 2023-09-28 20:30 | disposition home or self-care (01) ==
LOC: MW.ED 17:31
DX: M54.50 Low back pain, unspecified (principal); I25.10 Atherosclerotic heart disease of native coronary artery without angina pectoris; K21.9 Gastro-esophageal reflux disease without esophagitis; E11.9 Type 2 diabetes mellitus without complications; Z79.84 Long term (current) use of oral hypoglycemic drugs; Z75.8 Other problems related to medical facilities and other health care; Z79.899 Other long term (current) drug therapy
CPT/HCPCS: 36415; 80053; 83690; 83735; 85025; 85610; 85730; 86140; 96374; 96375; 99284; J2270; J2405; J3490; 99283

== ENCOUNTER 2024-08-05 14:47 | Emergency (ER) | payer BC ==
[2024-08-05] MEDS: Sodium Chloride 0.9% 1,000 ML IV ONE (16:09)
[2024-08-05] MEDS: Lidocaine 4% Patch TOP STA (16:10)
[2024-08-05 16:16] LABS: APPEARANCE,URINE CLEAR; BILIRUBIN,URINE NEGATIVE (NEGATIVE); COLOR,URINE YELLOW; GLUCOSE,URINE >=1000 mg/dL (NEGATIVE); KETONES,URINE NEGATIVE (NEGATIVE); LEUKOCYTE ESTERASE,URINE NEGATIVE (NEGATIVE); NITRITE,URINE NEGATIVE (NEGATIVE); OCCULT BLOOD,URINE NEGATIVE (NEGATIVE); PH,URINE 5.5 (5.0-8.0); PROTEIN,URINE NEGATIVE (NEGATIVE); UROBILINOGEN,URINE 0.2 EU/dL (<2.0)
[2024-08-05 16:27] LABS: BASOPHILS ABSOLUTE AUTO 0.07 K/uL (0.00-0.20); BASOPHILS PERCENT AUTO 1.1 % (0.0-1.0); EOSINOPHILS ABSOLUTE AUTO 0.12 K/uL (0.00-0.45); EOSINOPHILS PERCENT AUTO 1.9 % (0.0-6.0); HEMATOCRIT 45.8 % (42.0-52.0); HEMOGLOBIN 15.7 g/dL (14.0-18.0); IMMATURE GRAN ABSOLUTE AUTO 0.01 K/uL (0.00-0.05); IMMATURE GRAN PERCENT AUTO 0.2 % (0.0-0.4); LYMPHOCYTES ABSOLUTE AUTO 2.26 K/uL (1.00-4.80); LYMPHOCYTES PERCENT AUTO 36.4 % (24.0-44.0); MEAN CORPUSCULAR HEMOGLOBIN 30.7 pg (28.0-32.0); MEAN CORPUSCULAR HGB CONC 34.3 g/dL (32.0-36.0); MEAN CORPUSCULAR VOLUME 89.5 fL (83.0-99.0); MEAN PLATELET VOLUME 9.2 fL (9.4-12.4); MONOCYTES ABSOLUTE AUTO 0.49 K/uL (0.00-0.80); MONOCYTES PERCENT AUTO 7.9 % (0.0-8.0); NEUTROPHILS ABSOLUTE AUTO 3.26 K/uL (1.80-7.70); NEUTROPHILS PERCENT AUTO 52.5 % (41.0-71.0); PLATELET COUNT,PLT 297 K/uL (150-400); RED BLOOD CELL COUNT 5.12 M/uL (4.52-5.90); WHITE BLOOD CELL COUNT,WBC 6.21 K/uL (3.9-11.3)
[2024-08-05 16:54] LABS: A/G RATIO 1.1 (0.9-1.6); ALBUMIN 3.7 g/dL (3.4-5.0); BILIRUBIN TOTAL 0.5 mg/dL (0.2-1.0); CALCIUM 9.1 mg/dL (8.5-10.1); CARBON DIOXIDE,CO2 26.9 mmol/L (21.0-32.0); CREATININE 1.2 mg/dL (0.8-1.3); EST CRCL DRUG DOSING (CG) 70.06 mL/min; MAGNESIUM 2.3 mg/dL (1.8-2.4); POTASSIUM,K 3.9 mmol/L (3.5-5.1); PROTEIN TOTAL,TP 7.1 g/dL (6.4-8.2)
[2024-08-05 17:00] LABS: LACTIC ACID 1.7 mmol/L (0.4-2.0)
[2024-08-05] MEDS: Iopamidol 755 MG/ML 500 ML Multipack Bottle IVPUSH STA (17:43)
[2024-08-05] MEDS: Ketorolac 30 MG/ML SDV IVPUSH ONE (18:17)
[2024-08-05] MEDS: Orphenadrine 60 MG/2 ML Inj IV ONE (18:18)
== END 2024-08-05 18:32 | disposition home or self-care (01) ==
LOC: MW.ED 14:47
DX: K80.20 Calculus of gallbladder without cholecystitis without obstruction (principal); K57.30 Diverticulosis of large intestine without perforation or abscess without bleeding; K44.9 Diaphragmatic hernia without obstruction or gangrene; E11.9 Type 2 diabetes mellitus without complications; Z75.3 Unavailability and inaccessibility of health-care facilities; Z79.84 Long term (current) use of oral hypoglycemic drugs; I25.10 Atherosclerotic heart disease of native coronary artery without angina pectoris; Z79.899 Other long term (current) drug therapy
CPT/HCPCS: 36415; 74177; 80053; 81003; 83605; 83690; 83735; 85025; 96361; 96374; 96375; 99284; A9270; J1100; J1885; J2360; J7030; Q9967